=== PATIENT | female | born 1935 | race Caucasian/White ===

== ENCOUNTER 2024-02-17 13:50 | Inpatient (IN) | payer MEDICARE, SELFPAY ==
[2024-02-17] VITALS (22 sets, daily range): BP systolic 82–252; BP diastolic 45–97; BMI 32.1; BMI 31.5
[2024-02-17] MEDS: TORADOL 15 MG IV (09:13)
[2024-02-17 09:47] LABS: % Basophils 0.6 % (0-2); % Eosinophils 4.2 % (0-6); % Immature Granulocytes 0.4 % (0-0.5); % Monocytes 7.5 % (1.7-9.3); % Neutrophils 66.3 % (42.2-75.2); Absolute Basophils 0.1 10^3/uL (0-0.2); Absolute Eosinophils 0.4 10^3/uL (0-0.7); Absolute Lymphocytes 1.8 10^3/uL (1.2-3.4); Absolute Monocytes 0.6 10^3/uL (0.1-0.6); Absolute Neutrophils 5.6 10^3/uL (1.4-6.5); Hematocrit 38.8 % (37.0-47.0); Hemoglobin 12.5 g/dL (12.0-16.0); Mean Corp Hgb Conc. 32.2 g/dL (33.0-37.0); Mean Corpuscular Hgb 27.4 pg (27.0-31.0); Mean Corpuscular Volume 84.9 fL (81.0-99.0); Nucleated Red Blood Cells % 0 %; Platelet Count 184 10^3/uL (130-400); Red Blood Cell Count 4.57 10^6/uL (4.20-5.40); Red Cell Dist. Width 14.8 % (11.5-14.5); White Blood Cell Count 8.4 10^3/uL (4.8-10.8)
--- NOTE | 2024-02-17 09:48 | ED.GENMED ---
History of Present Illness
General
Chief Complaint: Extremity Pain (non-traumatic)
Source: patient
Exam Limitations: none
Time Seen by Provider: 02/17/24 08:42
Nursing documentation reviewed up to this point in time: agreed with
Travel History
Have you had any contact with someone who has COVID-19?: No
Do you have any symptoms of coronavirus? Fever > 100 degrees, chills, cough, shortness of breath, sore throat, loss of taste or smell, muscle aches, or headache?: No
History of Present Illness
History of Present Illness:
88-year-old female with a history of hypertension, hyperlipidemia, lvp-fnmxdjo-cpihbqnsh diabetes, back pain with chronic neuropathy and status post right hip replacement in 2017 with ongoing chronic right hip pain radiating into her leg on pain
management presents for an acute exacerbation of her chronic pain in her right hip and leg. Patient says that she normally lives at a 5 out of 10 plane level, she takes hydrocodone/Tylenol 10�3 25 3 times a day for pain. She used to get injections
in her back but they stopped working. This morning when she got up and went to get up to go to the bathroom she felt more significant pain in her right hip than usual which is into her right thigh. She does not feel numbness or weakness or have
incontinence. She has not had a fevers or or chills. There is been no trauma. This is in the same distribution as her chronic pain. She has not been x-rayed or image in a while. Patient says that she was able to take her hydrocodone but
ultimately called at [facility] for help and they called 911. She does not normally need to come to the hospital for pain medication.
Past History
Past History
ED Past Medical History: HTN, Hypercholesterolemia, NIDDM, Psychiatric and Other (Neuropathy)
ED Past Surgical History: Orthopedic
Review of Systems
Review of Systems
Allergies reviewed?: Yes
All Other Systems: Not applicable
Phy Exam
Physical Exam
Physical Exam:
GENERAL: Alert , in no apparent distress, comfortable at rest
HEAD: NCAT
NECK: no midline tenderness, active ROM intact, no paraspinal muscle tenderness;
CARDIAC: Regular rate and rhythm, no edema
LUNGS: Clear breath sounds bilaterally, no acute respiratory distress, no wheezes/rales/rhonchi
ABDOMEN: Soft, without focal tenderness, no r/g, no cvat, normal bowel sounds, nondistended
NEUROLOGICAL: Alert and oriented, no focal neuro deficits, CN intact, 5/5 strength, sensation intact unable to ambulate due to pain
SKIN: Warm and dry,
MUSCULOSKELETAL: No edema, well perfused. She does have an old incision which is healed, she has some prominence of her right lateral femur related to her previous surgery but no significant tenderness
Patient has no tenderness to palpation of the hip, minimal tenderness in the SI joint
He has no pain with flexion of the left hip, external rotation, but with internal rotation has discomfort
Back: No midline tenderness, mild dextroscoliosis, no paraspinal muscle tenderness, no swelling
When the patient went to sit on the side of the stretcher she got severe pain in her right SI joint and was unable to stand
negative straight leg raise Bilaterally
PSYCH:anixous
Course
Orders/Labs/Results
Orders:
Orders
02/17/24 09:01
Ketorolac [Toradol] 15 mg IV NOW STA
Hip, Right 2-3 Views [CR Hip - RT w/wo Pel 2-3 Vw*] Urgent
Comment:
Reason For Exam: right hip pain
Include a pelvis x-ray?: Yes
Lumbar Spine Complete, 4 View [CR Lumbar Spine Comp Min 4 Vw*] Urgent
Comment:
Reason For Exam: lower back pain into right leg
02/17/24 09:13
Basic Metabolic Panel Urgent
Complete Blood Count/With Diff Urgent
02/17/24 09:47
Gabapentin [Neurontin] 300 mg PO NOW STA
02/17/24 09:57
Losartan/Hydrochlorothiazide [Hyzaar 100-12.5 Tablet] 1 tab PO NOW STA
02/17/24 10:25
HYDROmorphone [Dilaudid] 1 mg .ROUTE .STK-MED ONE
HYDROmorphone [Dilaudid] 1 mg IV NOW STA
02/17/24 10:34
Losartan [Cozaar] 100 mg PO NOW STA
02/17/24 10:59
Labetalol HCl [Trandate] 10 mg IV NOW STA
02/17/24 11:08
Electrocardiogram (*1) Urgent
Reason for Study: Hypertension, Benign
EKG- Treatment ONCE
02/17/24 13:01
Admit/Transfer Patient As Directed
Co-Sign Provider:
Level of Care: Inpatient admission
Assign to:: Telemetry
Physician / Group: zaragoza/hospitalist
Diagnosis: HTN urgency
Reason for Telemetry: Other
Other Reason for Telemetry: meds for bp
Date to Stop Telemetry: 02/19/24
Time to Stop Telemetry: 11:00
Reason for Hospitalization: severe back/hip pain, htn urgency
Expected length of stay greater than two midnights?: Yes
ELOS- Estimated Length of Stay in days: 4
I certify the patient meets the requirements for IP care: Yes
02/17/24 13:03
Code Status As Directed
Resuscitation Status: Full Code
02/17/24 13:11
Potassium Stat
02/19/24 11:00
DC Protocol for Telemetry ONCE
Abnormal Lab Results
02/17/24
09:13
MCHC 32.2 L g/dL
(33.0-37.0)
RDW 14.8 H %
(11.5-14.5)
MPV 11.0 H fL
(7.4-10.4)
BUN 39 H mg/dl
(7-17)
Creatinine 1.7 H mg/dL
(0.6-1.0)
Glucose 123 H mg/dl
(70-99)
02/17/24 09:13
02/17/24 13:11
Vital Signs
Initial and Last Documented VS:
Initial Vital Signs
Temp Pulse Resp BP Pulse Ox
97.8 F 74 18 197/74 94
02/17/24 08:00 02/17/24 08:00 02/17/24 08:00 02/17/24 08:00 02/17/24 08:00
Last Documented Vital Signs
Temp Pulse Resp BP Pulse Ox
97.8 F 60 18 144/93 91
02/17/24 08:00 02/17/24 14:15 02/17/24 08:00 02/17/24 14:00 02/17/24 14:15
MDM/Problems Addressed
Differential Diagnosis Includes:
Acute exacerbation of chronic pain, radiculopathy,
MDM/Problems Addressed:
88 y/o F with htn, hld, niddm, diabetes, chronic neuropathy and chronic pain on pain management after right THR years ago; woke up and tried to get out of bed and her chronic pain was worse than usual, same distribution right hip into right leg; no
nubmness/weakness/incontience, no chest pain/sob/abd pain;
here pt is able to range the hip,do not suspect infectious cause for severe hip pain, normal neurovasc exam; she was very hypertensive on arrival but hadn't taken meds and was in pain; took her hydrocodone prior to me seeing her, but is still in
pain after 2 doses IV pain meds; xrays unremarkable; wbc normal; cr 1.7; bp elevated still; got her dose of losartan here but persistently hypertnesive, given a dose of labetalol and will admit for pain control;
*Critical Care Note
Total Time (30-74mins, 75-104mins- exclusive of procedures): Not Applicable
ED Attending Note
-
Portions of this chart may have been created with voice recognition software.� Occasional wrong word or��sound alike� substitutions may have occurred due to the inherent limitations of voice recognition software.
Discharge Plan
Departure
Patient Disposition: Admit
Date of Disposition: 02/17/24
Time of Disposition: 11:01
Admit to: Med/Surg
Presentation/result/management discussed w/ accepting MD/DO: Hospitalist
Condition: Fair
Covid-19: Not Applicable
Discharge Problem:
Intractable pain, Hypertensive urgency
Interventions
Interventions:
*Risk Screen - Suicide Last Done: 02/17/24 09:12
*General Assessment Last Done: 02/17/24 09:12
*Neglect/Abuse Screening Last Done: 02/17/24 09:12
*ED COVID-19 Vaccine History Last Done: 02/17/24 07:55
ED-Skin Assessment Last Done: 02/17/24 08:57
ED-Musculoskeletal Assessment Last Done: 02/17/24 08:57
[2024-02-17 10:07] LABS: Blood Urea Nitrogen 39 mg/dl (7-17); Calcium 9.5 mg/dl (8.4-10.2); Carbon Dioxide 26 mmol/L (22-30); Chloride 105 mmol/L (98-107); Estimated Creatinine Clearance 21 ml/min; Glucose 123 mg/dl (70-99); Sodium 138 mmol/L (135-145); eGFR 28.84
[2024-02-17] MEDS: DILAUDID 1 MG IV (10:28)
[2024-02-17] MEDS: NEURONTIN 300 MG PO ×2 (10:29→20:26)
[2024-02-17] MEDS: COZAAR 100 MG PO (10:45)
[2024-02-17] MEDS: TRANDATE 10 MG IV (11:19)
--- NOTE | 2024-02-17 13:06 | HPS.HSE ---
Family Physician
-
Family Physician: Tunde Forte
Chief Complaint
-
back and hip pain
History of Present Illness
88 female past medical history of chronic pain was presented from [facility] with severe right hip pain and leg pain. Patient states on daily basis she takes pain medication. Follows up with a pain management doctor and has been discussing care
over the phone. Taking hydrocodone 3 times daily. Per daughter at bedside patient pain has worsened in the last 2 to 3 weeks. States usually walks with a walker. Also has scooter at [facility]. States at baseline she usually has pain.
However the pain exacerbated this morning and decided come to the hospital. Denies any urinary or fecal incontinence. States of right hip pain radiating to the right knee. Patient states she used to get injections in the back however stopped
working and thus it was discontinued. States she woke up with severe pain in the right hip radiating to her thigh which was significantly more compared to prior events. Currently states of severe pain which was alleviated by Dilaudid earlier
today. Denies any other chest pain shortness of breath nausea vomiting. No abdominal pain.
Medical History
Past Medical History
Past Medical History: Reports Other
Additional Past Medical History:
Primary hypertension
Osteoarthritis
Chronic opioid dependent daily basis
Neuropathy
Coronary artery disease
Mood disorder
GERD
Suspected CKD
Diabetes mellitus
Past Surgical History: Reports Other
Additional Past Surgical History:
Coronary artery disease status post CABG
Bilateral hip replacement
Lumbar spinal fusion and decompression
Social History
Unable to obtain full social history at this time due to: Acuity
Living: Correction (Lives at [facility])
Family History
Family History: Not pertinent
Allergies / Home Medications
Allergies reflects when Allergies were last updated in [employer].
Home Medications with original date entered in [employer]
Allergy/Medication List:
Allergies
Allergy/AdvReac Type Severity Reaction Status Date / Time
No Known Allergies Allergy Unverified 02/17/24 07:57
Home Medications
aspirin 81 mg tablet,delayed release 81 mg PO DAILY 02/17/24
calcium carbonate 500 mg PO DAILY 02/17/24
celecoxib 200 mg capsule (Celebrex) 200 mg PO BID 02/17/24
ezetimibe 10 mg-simvastatin 20 mg tablet (Vytorin) 1 tab PO DAILY 02/17/24
gabapentin 300 mg capsule 300 mg PO TID 02/17/24
hydrocodone 10 mg-acetaminophen 325 mg tablet 1 tab PO TID 02/17/24
losartan 100 mg tablet 100 mg PO DAILY 02/17/24
metformin 500 mg tablet,extended release 24 hr 500 mg PO BID 02/17/24
omega 7-pwi-lpu-fish oil 1,000 mg (120 mg-180 mg) capsule (Fish Oil) 1 cap PO DAILY 02/17/24
omeprazole 40 mg capsule,delayed release 40 mg PO DAILY 02/17/24
sertraline 50 mg tablet 50 mg PO DAILY 02/17/24
therapeutic multivitamin 1 tab PO DAILY 02/17/24
Review of Systems
-
Unable to obtain full review of systems at this time due to: Acuity
Physical Exam
Vital Signs
Vital Signs
Temp Pulse Resp BP Pulse Ox
97.8 F 63 18 93/73 89
02/17/24 08:00 02/17/24 11:48 02/17/24 08:00 02/17/24 11:48 02/17/24 11:48
Physical Exam
General: Well Developed, Well Nourished, Appears in Distress and Pain
HEENT: NormoCephalic, Moist mucous membranes and Atraumatic
Respiratory: Clear
Cardiac: S1/S2 and Regular Rhythm; No Murmur or Rub
GI: Soft, Non Tender, Non Distended and Normal Bowel Sounds; No Organomegaly
Rectal: Deferred by Provider
Musculoskeletal: No Clubbing, No Cyanosis and No Edema
Skin: No Rash
Neuro: Awake, Nonfocal/grossly intact and Other (Hard of hearing. Tender to palpation lower back region.)
Psych: Calm
Laboratory Results
-
02/17/24 09:13
02/17/24 09:13
Laboratory Results
Total Bilirubin Cancelled 02/17/24 09:13
AST Cancelled 02/17/24 09:13
ALT Cancelled 02/17/24 09:13
Alkaline Phosphatase Cancelled 02/17/24 09:13
Impression/Plan
-
#Acute on chronic lumbar radiculopathy
#Bilateral hip replacements
#Chronic opioid dependent daily basis
Increase hydrocodone to 4 times daily
Increase gabapentin to 400 3 times daily
Intravenous medication for additional pain control if needed
Bowel regimen
Physical and Occupational Therapy in the morning
Hip and spine x-ray noted
#Hypertension urgency likely secondary to pain
#Primary hypertension
Patient blood pressure improved. During my evaluation patient blood pressure 132/51
Continue with home medication
#GERD
Continue PPI
Hyperlipidemia
Continue home meds
Mood disorder
Continue with sertraline
Elevated creatinine likely MUNA versus CKD
Trend creatinine
Diabetes mellitus type 2
Continue metformin
Sliding scale Accu-Chek
Obtain A1c
DVT prophylaxis heparin
Discussed with daughter at bedside in detail
Full code
I spent a total of 78 minutes with the patient or on the floor. More than 50% of this time involved counseling and coordination of care.
[2024-02-17 13:34] LABS: Potassium 4.4 mmol/L (3.5-5.1)
[2024-02-17] MEDS: DILAUDID 0.5 MG IV (15:44)
[2024-02-17 16:39] LABS: Glucose - Point of Care 111 mg/dl (70-99)
[2024-02-17] MEDS: NOVOLOG FLEXPEN-LOW RESISTANCE SC (17:15)
[2024-02-17] MEDS: APRESOLINE 10 MG IV (17:29)
[2024-02-17] MEDS: NORCO 7.5/325 1 TABLET PO ×2 (17:30→21:24)
[2024-02-17] MEDS: HEPARIN 5000 UNITS SC (20:26)
[2024-02-17 21:47] LABS: Glucose - Point of Care 188 mg/dl (70-99)
[2024-02-18] VITALS (8 sets, daily range): BP systolic 125–250; BP diastolic 51–95; PULSE 68; O2SAT 94; BMI 29.4
[2024-02-18] MEDS: DILAUDID 0.5 MG IV (02:49)
[2024-02-18] MEDS: VALIUM 2 MG PO (03:29)
[2024-02-18] MEDS: NORCO 7.5/325 1 TABLET PO ×4 (08:07→21:20)
[2024-02-18] MEDS: PROTONIX 40 MG PO (08:07)
[2024-02-18] MEDS: LIPITOR 10 MG PO (08:07)
[2024-02-18] MEDS: COZAAR 100 MG PO (08:07)
[2024-02-18] MEDS: ZETIA 10 MG PO (08:07)
[2024-02-18] MEDS: ASPIR LOW (ENTERIC COATED) 81 MG PO (08:07)
[2024-02-18] MEDS: NEURONTIN 300 MG PO ×2 (08:07→20:14)
[2024-02-18] MEDS: HEPARIN 5000 UNITS SC ×2 (08:08→20:14)
[2024-02-18] MEDS: ZOLOFT 50 MG PO (08:08)
[2024-02-18] MEDS: THERAGRAN 1 TABLET PO (08:08)
[2024-02-18] MEDS: OSCAL CAL 500 500 MG PO (08:08)
[2024-02-18 08:18] LABS: Blood Urea Nitrogen 34 mg/dl (7-17); Calcium 9.5 mg/dl (8.4-10.2); Carbon Dioxide 26 mmol/L (22-30); Chloride 106 mmol/L (98-107); Estimated Creatinine Clearance 24 ml/min; Glucose 125 mg/dl (70-99); Potassium 4.9 mmol/L (3.5-5.1); Sodium 139 mmol/L (135-145); eGFR 33.52
[2024-02-18 08:35] LABS: Glucose - Point of Care 115 mg/dl (70-99)
[2024-02-18] MEDS: NOVOLOG FLEXPEN-LOW RESISTANCE SC ×2 (08:38→12:33)
[2024-02-18] MEDS: APRESOLINE 10 MG IV (09:51)
[2024-02-18] MEDS: FLUSH (NSS) 2 FLUSH IV (09:51)
--- NOTE | 2024-02-18 11:15 | W.PN.HOSP.TC ---
Today's Communication/Plan
-
pain control
procardia as bp elevated
ice pack
pt/ot
Assessment / Plan
Assessment / Plan
#Acute on chronic lumbar radiculopathy
#Bilateral hip replacements
#Chronic opioid dependent daily basis
Increase hydrocodone to 4 times daily
Gabapentin dose adjusted/decrease due to low CrCl
Intravenous medication for additional pain control if needed
Bowel regimen
Physical and Occupational Therapy in the morning
Hip and spine x-ray noted
ice pack
lateral hip pain-?trochanteric bursitis
#Hypertension urgency likely secondary to pain
#Primary hypertension
Patient blood pressure improved.
Continue with home medication losartan.
Add procardia as BP remains elevated.
#GERD
Continue PPI
Hyperlipidemia
Continue home meds
Mood disorder
Continue with sertraline
Elevated creatinine likely MUNA versus CKD
Trend creatinine
hold NSAIDs for now
Diabetes mellitus type 2
Hold metformin
Sliding scale Accu-Chek
Obtain A1c at 6
DVT prophylaxis heparin
Full code
PT/OT-SNF on dc.
Anticipated Discharge: 24 - 48 hours
Subjective/Interval History
-
Date of Service: February 18, 2024
states of lateral hip pain with radiation to knee
no back pain
Objective Data
-
Labs:
Laboratory Results
02/18/24
07:20
Sodium 139
Potassium 4.9
Chloride 106
Carbon Dioxide 26
BUN 34 H
Creatinine 1.5 H
Glucose 125 H
Calcium 9.5
Vital Signs:
Vital Signs
Temp Pulse Resp BP Pulse Ox
97.9 F 70 22 179/64 96
02/18/24 07:00 02/18/24 09:51 02/18/24 07:00 02/18/24 09:51 02/18/24 07:00
I&O
02/17/24 02/18/24 02/19/24
06:59 06:59 06:59
Output Total 150 / 150
Balance -150 / -150
Physical Exam
-
General: Well Developed and No Apparent Distress
HEENT: Normocephalic, Atraumatic and Moist Mucous Membranes
Respiratory: Clear to Auscultation
Cardiac: Regular Rhythm and S1/S2; Negative Murmur, Rub or Gallop
GI: Soft, Nontender, Nondistended and Normal Bowel Sounds; Negative Organomegaly
Rectal: Deferred by Provider
Musculoskeletal: No Clubbing, No Cyanosis and No Edema
Skin: Negative Rash
Neuro: Awake and Nonfocal/Grossly Intact
Psych: Calm
Data Reviewed
-
Total Time Spent with Patient (in minutes): 56
[2024-02-18 12:07] LABS: Glucose - Point of Care 148 mg/dl (70-99)
[2024-02-18] MEDS: PROCARDIA XL (EXTENDED RELEASE) 30 MG PO (12:18)
[2024-02-18] MEDS: MORPHINE SULFATE 2 MG IV ×2 (12:29→17:10)
[2024-02-18 16:25] LABS: Glucose - Point of Care 166 mg/dl (70-99)
[2024-02-18] MEDS: NOVOLOG FLEXPEN-LOW RESISTANCE 1 UNITS SC (17:09)
[2024-02-18 21:22] LABS: Glucose - Point of Care 153 mg/dl (70-99)
[2024-02-19] MEDS: VALIUM 2 MG PO (02:53)
[2024-02-19] MEDS: APRESOLINE 10 MG IV ×2 (03:35→23:19)
[2024-02-19] MEDS: MORPHINE SULFATE 2 MG IV (04:30)
--- NOTE | 2024-02-19 05:35 | PTCARENOTE ---
pt manual BP 180/70, PRN hydralazine given. BP rechecked an hour later- 183/80. GABBIE De Jesus notified, GABBIE said OK to give procardia XL early. call petty within reach.
[2024-02-19] MEDS: PROCARDIA XL (EXTENDED RELEASE) 30 MG PO (05:58)
[2024-02-19 07:54] LABS: Glucose - Point of Care 133 mg/dl (70-99)
[2024-02-19 07:58] VITALS: BP 147/56
[2024-02-19] MEDS: NOVOLOG FLEXPEN-LOW RESISTANCE SC ×2 (09:24→18:41)
[2024-02-19] MEDS: COZAAR 100 MG PO (09:25)
[2024-02-19] MEDS: ASPIR LOW (ENTERIC COATED) 81 MG PO (09:25)
[2024-02-19] MEDS: NORCO 7.5/325 1 TABLET PO ×4 (09:26→21:39)
[2024-02-19] MEDS: NEURONTIN 300 MG PO ×2 (09:26→20:54)
[2024-02-19] MEDS: OSCAL CAL 500 500 MG PO (09:27)
[2024-02-19] MEDS: ZETIA 10 MG PO (09:27)
[2024-02-19] MEDS: ZOLOFT 50 MG PO (09:27)
[2024-02-19] MEDS: THERAGRAN 1 TABLET PO (09:28)
[2024-02-19] MEDS: LIPITOR 10 MG PO (09:28)
[2024-02-19] MEDS: PROTONIX 40 MG PO (09:31)
[2024-02-19] MEDS: DILAUDID 0.5 MG IV ×2 (09:31→15:47)
[2024-02-19] MEDS: HEPARIN 5000 UNITS SC ×2 (09:32→20:54)
--- NOTE | 2024-02-19 10:42 | CM ---
Reviewed chart, met with patient to obtain information for assessment. Patient's daughter was at bedside and patient was working with PT so patient's daughter was able to provide information for assessment. Patient lives alone at [facility]. She
is normally independent with her ADLs, personal care, dressing and bathing. She uses a walker to assist her with her ambulation but uses a scooter for long distances.
Patient receives assistance with retail product demo specialist, cleaning, meal prep and laundry. Her daughter lives close and is supportive.
Patient's daughter reported that patient is not at baseline level of functioning and would prefer for her to go to the [facility] prior to returning to her apartment.
Patient has never had VN services (daughter relayed she did but years ago). She has not been to a SNF.
She has a prescription plan and uses [facility] pharmacy for all of her medications.
Her provider is Dr. Tunde Forte.
Placed a call to Mar in admissions at the [facility] however she did not waste picker. Left a detailed message updating that referral will be sent for her review and encouraged return call to discuss discharge.
Plan: Case management will continue to follow and assist with discharge planning. Patient/daughter hopeful for SNF at [facility] as she is a resident.
[2024-02-19 10:45] VITALS: BP 136/58; PULSE 86
[2024-02-19 11:27] VITALS: BP 116/60
--- NOTE | 2024-02-19 11:53 | W.PN.HOSP.TC ---
Today's Communication/Plan
-
MR pending
pain control
OOB
bowel regimen
monitor BP
Assessment / Plan
Assessment / Plan
#Acute on chronic lumbar radiculopathy
#Bilateral hip replacements
#Chronic opioid dependent daily basis
Increase hydrocodone to 4 times daily
Gabapentin dose adjusted/decrease due to low CrCl
Intravenous medication for additional pain control if needed
Bowel regimen standing
Physical and Occupational Therapy recs SNF
Hip and spine x-ray noted
MR lumbar spine ordered
No urinary or fecal incontience. No saddle anesthesia
ice pack
lateral hip pain-?trochanteric bursitis
Called and left message for patient pain management doctor Dr. Donte Nowak at [phone]. Waiting to hear back.
#Hypertension urgency likely secondary to pain
#Primary hypertension
Patient blood pressure improved.
Continue with home medication losartan.
Add procardia as BP remains elevated.
BP improved 116/60
#GERD
Continue PPI
Hyperlipidemia
Continue home meds
Mood disorder
Continue with sertraline
Elevated creatinine likely MUNA versus CKD
Trend creatinine
hold NSAIDs for now
Diabetes mellitus type 2
Hold metformin
Sliding scale Accu-Chek
Obtain A1c at 6
DVT prophylaxis heparin
Full code
PT/OT-SNF on dc.
d/w with daughter at bedside
Anticipated Discharge: > 48 hours
Subjective/Interval History
-
Date of Service: February 19, 2024
States was feeling alot better yesterday
overnight with severe pain after movements
remains with pain this morning
Objective Data
-
Vital Signs:
Vital Signs
Temp Pulse Resp BP Pulse Ox
98.5 F 80 18 116/60 93
02/19/24 11:27 02/19/24 11:27 02/19/24 11:27 02/19/24 11:27 02/19/24 11:27
I&O
02/18/24 02/19/24 02/20/24
06:59 06:59 06:59
Intake Total 1500 / 1500
Output Total 150 / 150
Balance -150 / -150 1500 / 1500
Physical Exam
-
General: Well Developed and No Apparent Distress
HEENT: Normocephalic, Atraumatic and Moist Mucous Membranes
Respiratory: Clear to Auscultation
Cardiac: Regular Rhythm and S1/S2; Negative Murmur, Rub or Gallop
GI: Soft, Nontender, Nondistended and Normal Bowel Sounds; Negative Organomegaly
Rectal: Deferred by Provider
Musculoskeletal: No Clubbing, No Cyanosis, No Edema and Other (TTP at R hip area. )
Skin: Negative Rash
Neuro: Awake, No Motor Deficits, Nonfocal/Grossly Intact and Other (hard of hearing )
Psych: Calm
Data Reviewed
-
Total Time Spent with Patient (in minutes): 55
[2024-02-19] MEDS: SENOKOT-S 1 TABLET PO ×2 (12:48→20:54)
[2024-02-19 12:57] LABS: Glucose - Point of Care 238 mg/dl (70-99)
[2024-02-19] MEDS: NOVOLOG FLEXPEN-LOW RESISTANCE 2 UNITS SC (13:18)
[2024-02-19 14:55] VITALS: BP 110/44
[2024-02-19 17:14] LABS: Glucose - Point of Care 123 mg/dl (70-99)
[2024-02-19 18:59] VITALS: BP 124/59
[2024-02-19] MEDS: MIRALAX 17 GRAMS PO (21:39)
[2024-02-19 21:43] LABS: Glucose - Point of Care 158 mg/dl (70-99)
[2024-02-19 23:00] VITALS: BP 167/63
[2024-02-20 03:00] VITALS: BP 125/55
[2024-02-20 07:25] VITALS: BP 152/71
[2024-02-20 07:50] LABS: Glucose - Point of Care 124 mg/dl (70-99)
--- NOTE | 2024-02-20 08:03 | W.PN.HOSP.TC ---
Today's Communication/Plan
-
Await MRI results
Continue pain meds
Bowel regimen
Eventual SNF
Assessment / Plan
Assessment / Plan
#Acute on chronic lumbar radiculopathy
#Bilateral hip replacements
#Chronic opioid dependent daily basis
Increase hydrocodone to 4 times daily
Gabapentin dose adjusted/decrease due to low CrCl
Intravenous medication for additional pain control if needed
Bowel regimen standing
Physical and Occupational Therapy recs SNF
Hip and spine x-ray noted
MR lumbar spine ordered
No urinary or fecal incontience. No saddle anesthesia
ice pack
lateral hip pain-?trochanteric bursitis
Discussed with Dr. Donte Nowak at [phone]. Awaiting MRI results
Eventual SNF
#Hypertension urgency likely secondary to pain
#Primary hypertension
Patient blood pressure improved.
Continue with home medication losartan.
Add procardia as BP remains elevated.
Continue to monitor may need to adjust Procardia.
#GERD
Continue PPI
Hyperlipidemia
Continue home meds
Mood disorder
Continue with sertraline
Elevated creatinine likely MUNA versus CKD
Trend creatinine
hold NSAIDs for now
Diabetes mellitus type 2
Hold metformin
Sliding scale Accu-Chek
Obtain A1c at 6
DVT prophylaxis heparin
Full code
PT/OT-SNF on dc.
d/w with daughter at bedside on 02/18.
Anticipated Discharge: > 48 hours
Subjective/Interval History
-
Date of Service: February 20, 2024
States pain has improved
States was able to sleep overnight
Objective Data
-
Vital Signs:
Vital Signs
Temp Pulse Resp BP Pulse Ox
98.3 F 90 16 152/71 96
02/20/24 07:25 02/20/24 07:25 02/20/24 07:25 02/20/24 07:25 02/20/24 07:25
I&O
02/19/24 02/20/24 02/21/24
06:59 06:59 06:59
Intake Total 1500 / 1500 1500 / 1500
Balance 1500 / 1500 1500 / 1500
Physical Exam
-
General: Well Developed and No Apparent Distress
HEENT: Normocephalic, Atraumatic and Moist Mucous Membranes
Respiratory: Clear to Auscultation
Cardiac: Regular Rhythm and S1/S2; Negative Murmur, Rub or Gallop
GI: Soft, Nontender, Nondistended and Normal Bowel Sounds; Negative Organomegaly
Rectal: Deferred by Provider
Musculoskeletal: No Clubbing, No Cyanosis, No Edema and Other (TTP at R hip area. )
Skin: Negative Rash
Neuro: Awake, No Motor Deficits, Nonfocal/Grossly Intact and Other (hard of hearing )
Psych: Calm
[2024-02-20] MEDS: NOVOLOG FLEXPEN-LOW RESISTANCE SC (08:37)
[2024-02-20] MEDS: ASPIR LOW (ENTERIC COATED) 81 MG PO (09:04)
[2024-02-20] MEDS: PROCARDIA XL (EXTENDED RELEASE) 30 MG PO (09:04)
[2024-02-20] MEDS: NEURONTIN 300 MG PO ×2 (09:04→19:48)
[2024-02-20] MEDS: ZOLOFT 50 MG PO (09:04)
[2024-02-20] MEDS: OSCAL CAL 500 500 MG PO (09:04)
[2024-02-20] MEDS: THERAGRAN 1 TABLET PO (09:04)
[2024-02-20] MEDS: PROTONIX 40 MG PO (09:04)
[2024-02-20] MEDS: COZAAR 100 MG PO (09:04)
[2024-02-20] MEDS: LIPITOR 10 MG PO (09:05)
[2024-02-20] MEDS: ZETIA 10 MG PO (09:05)
[2024-02-20] MEDS: SENOKOT-S 1 TABLET PO ×2 (09:05→19:48)
[2024-02-20] MEDS: HEPARIN 5000 UNITS SC ×2 (09:05→19:48)
[2024-02-20] MEDS: NORCO 7.5/325 1 TABLET PO ×4 (09:05→21:42)
[2024-02-20 11:16] VITALS: BP 144/55
[2024-02-20 12:11] LABS: Glucose - Point of Care 163 mg/dl (70-99)
[2024-02-20] MEDS: NOVOLOG FLEXPEN-LOW RESISTANCE 1 UNITS SC ×2 (13:25→17:36)
[2024-02-20 15:26] VITALS: BP 120/54
[2024-02-20 16:41] LABS: Glucose - Point of Care 165 mg/dl (70-99)
[2024-02-20] MEDS: DILAUDID 0.5 MG IV (19:57)
[2024-02-20 21:04] LABS: Glucose - Point of Care 151 mg/dl (70-99)
[2024-02-20] MEDS: MIRALAX 17 GRAMS PO (21:42)
[2024-02-20 23:25] VITALS: BP 142/79
[2024-02-21 07:17] VITALS: BP 170/82
[2024-02-21] MEDS: THERAGRAN 1 TABLET PO (07:41)
[2024-02-21] MEDS: NEURONTIN 300 MG PO ×2 (07:41→20:32)
[2024-02-21] MEDS: ASPIR LOW (ENTERIC COATED) 81 MG PO (07:41)
[2024-02-21] MEDS: PROTONIX 40 MG PO (07:41)
[2024-02-21] MEDS: OSCAL CAL 500 500 MG PO (07:42)
[2024-02-21] MEDS: SENOKOT-S 1 TABLET PO ×2 (07:42→20:32)
[2024-02-21] MEDS: COZAAR 100 MG PO (07:42)
[2024-02-21] MEDS: NORCO 7.5/325 1 TABLET PO ×4 (07:42→21:40)
[2024-02-21] MEDS: PROCARDIA XL (EXTENDED RELEASE) 30 MG PO ×2 (07:42→20:32)
[2024-02-21] MEDS: ZOLOFT 50 MG PO (07:43)
[2024-02-21] MEDS: HEPARIN 5000 UNITS SC ×2 (07:43→20:32)
[2024-02-21] MEDS: LIPITOR 10 MG PO (07:43)
[2024-02-21] MEDS: ZETIA 10 MG PO (07:43)
[2024-02-21 08:07] LABS: Glucose - Point of Care 114 mg/dl (70-99)
[2024-02-21 08:38] VITALS: BP 164/62
[2024-02-21] MEDS: NOVOLOG FLEXPEN-LOW RESISTANCE SC ×2 (10:04→18:13)
--- NOTE | 2024-02-21 10:25 | W.PN.HOSP.TC ---
Today's Communication/Plan
-
CT RLE
pain control
oob/pt
start dispo
Assessment / Plan
Assessment / Plan
#Acute on chronic lumbar radiculopathy
#Bilateral hip replacements
#Chronic opioid dependent daily basis
Increase hydrocodone to 4 times daily
Gabapentin dose adjusted/decrease due to low CrCl
Intravenous medication for additional pain control if needed
Bowel regimen standing
Physical and Occupational Therapy recs SNF
Hip and spine x-ray noted
MR lumbar spine ordered
No urinary or fecal incontinence. No saddle anesthesia
ice pack
lateral hip pain-?trochanteric bursitis
Check RLE CT scan r/o occult fracture.
Discussed with Dr. Donte Nowak at [phone].
Eventual SNF
#Hypertension urgency likely secondary to pain
#Primary hypertension
Continue with home medication losartan.
Add procardia
#GERD
Continue PPI
Hyperlipidemia
Continue home meds
Mood disorder
Continue with sertraline
Elevated creatinine likely MUNA versus CKD
Trend creatinine
hold NSAIDs for now
Diabetes mellitus type 2
Hold metformin
Sliding scale Accu-Chek
Obtain A1c at 6
DVT prophylaxis heparin
Full code
PT/OT-SNF on dc.
d/w with daughter at bedside on 02/18.
Anticipated Discharge: Within 24 hours
Subjective/Interval History
-
Date of Service: February 21, 2024
Denies back pain
states of severe R lateral leg pain-worsened with walking
Objective Data
-
Vital Signs:
Vital Signs
Temp Pulse Resp BP Pulse Ox
97.8 F 95 16 164/62 96
02/21/24 07:46 02/21/24 07:46 02/21/24 07:46 02/21/24 08:38 02/21/24 07:46
I&O
02/20/24 02/21/24 02/22/24
06:59 06:59 06:59
Intake Total 1500 / 1500 1720 / 1720
Balance 1500 / 1500 1720 / 1720
Physical Exam
-
General: Well Developed and No Apparent Distress
HEENT: Normocephalic, Atraumatic and Moist Mucous Membranes
Respiratory: Clear to Auscultation
Cardiac: Regular Rhythm and S1/S2; Negative Murmur, Rub or Gallop
GI: Soft, Nontender, Nondistended and Normal Bowel Sounds; Negative Organomegaly
Rectal: Deferred by Provider
Musculoskeletal: No Clubbing, No Cyanosis, No Edema and Other (TTP at R hip area. )
Skin: Negative Rash
Neuro: Awake, No Motor Deficits, Nonfocal/Grossly Intact and Other (hard of hearing )
Psych: Calm
[2024-02-21 11:31] VITALS: BP 178/57
[2024-02-21] MEDS: APRESOLINE 10 MG IV (11:35)
[2024-02-21 11:51] LABS: Glucose - Point of Care 153 mg/dl (70-99)
--- NOTE | 2024-02-21 12:41 | PTCARENOTE ---
pt had vagal response while on toilet after last BM. pt had also received PRN hydralazine for SPB >160. assisted back to bed, C/O weakness and fatigue. attending notified. pt then presents with b/L hand tremors, though states this does usually
happen to her 'before pain comes on'
[2024-02-21] MEDS: NOVOLOG FLEXPEN-LOW RESISTANCE 1 UNITS SC (12:50)
[2024-02-21] MEDS: NSS 500 IV (12:50)
[2024-02-21 16:02] VITALS: BP 145/56
[2024-02-21 16:37] LABS: Glucose - Point of Care 199 mg/dl (70-99)
[2024-02-21 18:12] LABS: Glucose - Point of Care 133 mg/dl (70-99)
[2024-02-21 21:05] LABS: Glucose - Point of Care 160 mg/dl (70-99)
[2024-02-21] MEDS: MIRALAX 17 GRAMS PO (21:40)
[2024-02-21 23:15] VITALS: BP 138/60
[2024-02-22 07:00] VITALS: BP 160/68
[2024-02-22 07:36] LABS: % Basophils 0.8 % (0-2); % Eosinophils 5.3 % (0-6); % Immature Granulocytes 0.3 % (0-0.5); % Lymphocytes 31.8 % (20.5-51.1); % Monocytes 9.6 % (1.7-9.3); % Neutrophils 52.2 % (42.2-75.2); Absolute Basophils 0.1 10^3/uL (0-0.2); Absolute Eosinophils 0.4 10^3/uL (0-0.7); Absolute Lymphocytes 2.4 10^3/uL (1.2-3.4); Absolute Monocytes 0.7 10^3/uL (0.1-0.6); Hematocrit 37.8 % (37.0-47.0); Hemoglobin 11.8 g/dL (12.0-16.0); Mean Corp Hgb Conc. 31.2 g/dL (33.0-37.0); Mean Corpuscular Hgb 27.1 pg (27.0-31.0); Mean Corpuscular Volume 86.9 fL (81.0-99.0); Nucleated Red Blood Cells % 0 %; Platelet Count 189 10^3/uL (130-400); Red Blood Cell Count 4.35 10^6/uL (4.20-5.40); Red Cell Dist. Width 15.4 % (11.5-14.5); White Blood Cell Count 7.6 10^3/uL (4.8-10.8)
[2024-02-22 07:52] LABS: Glucose - Point of Care 118 mg/dl (70-99)
[2024-02-22 08:12] LABS: Blood Urea Nitrogen 42 mg/dl (7-17); Calcium 9.7 mg/dl (8.4-10.2); Carbon Dioxide 22 mmol/L (22-30); Chloride 104 mmol/L (98-107); Estimated Creatinine Clearance 17 ml/min; Glucose 131 mg/dl (70-99); Potassium 4.5 mmol/L (3.5-5.1); Sodium 137 mmol/L (135-145); eGFR 23.73
[2024-02-22] MEDS: NOVOLOG FLEXPEN-LOW RESISTANCE SC (08:12)
[2024-02-22] MEDS: SENOKOT-S 1 TABLET PO ×2 (08:12→19:30)
[2024-02-22] MEDS: PROTONIX 40 MG PO (08:13)
[2024-02-22] MEDS: OSCAL CAL 500 500 MG PO (08:13)
[2024-02-22] MEDS: ZETIA 10 MG PO (08:13)
[2024-02-22] MEDS: PROCARDIA XL (EXTENDED RELEASE) 30 MG PO ×2 (08:13→19:31)
[2024-02-22] MEDS: NEURONTIN 300 MG PO ×2 (08:13→19:30)
[2024-02-22] MEDS: ASPIR LOW (ENTERIC COATED) 81 MG PO (08:13)
[2024-02-22] MEDS: LIPITOR 10 MG PO (08:13)
[2024-02-22] MEDS: ZOLOFT 50 MG PO (08:14)
[2024-02-22] MEDS: COZAAR 100 MG PO (08:14)
[2024-02-22] MEDS: NORCO 7.5/325 1 TABLET PO ×4 (08:14→21:13)
[2024-02-22] MEDS: HEPARIN 5000 UNITS SC ×2 (08:14→19:31)
--- NOTE | 2024-02-22 08:21 | W.PN.HOSP.TC ---
Today's Communication/Plan
-
urine studies, PVR
pain control
eventual SNF, likely tomorrow
Assessment / Plan
Assessment / Plan
LUMBAR SPINE MRI
IMPRESSION:
1). Multilevel lumbar degenerative disc disease with grade 1 spondylolisthesis at L3-4 and L4-5, multilevel central canal stenosis and multilevel foraminal stenosis as detailed above
2). Postoperative changes including:
-Decompressive laminectomies at L3, L4 and L5
-Bilateral interconnected pedicle screws at L4 and L5
-There is a low T1 and T2 signal 1 cm Square lesion in the upper body of L1 which is presumably postoperative
3). Mild loss of vertebral body stature at L2 related to L2-[address]
IMPRESSION:
Total right hip arthroplasty hardware noted in place without overt complication. No evidence for periprosthetic fracture or loosening. No periprosthetic osteolysis.
Diverticulosis coli. Mild degenerative changes of the left hip. No acute fractures or dislocation.
Evaluation of additional soft tissue structures such as tendons and ligaments is limited by CT. Grossly, no abnormalities are seen.
#Acute on chronic lumbar radiculopathy
#Bilateral hip replacements
#Chronic opioid dependent daily basis
Increase hydrocodone to 4 times daily
Gabapentin dose adjusted/decrease due to low CrCl
Intravenous medication for additional pain control if needed
Bowel regimen standing
Physical and Occupational Therapy recs SNF
Hip and spine x-ray noted
MR lumbar spine ordered
No urinary or fecal incontinence. No saddle anesthesia
ice pack
lateral hip pain-?trochanteric bursitis
RLE CT without fracture - see results above
Per Dr. Juarez: this was Discussed with Dr. Donte Nowak at [phone].
Eventual SNF
#Hypertension urgency likely secondary to pain
#Primary hypertension
hold losartan with elevated creatinine - daughter and patient say no hx kidney disease (see below)
procardia started per Dr. Juarez - continue
MUNA versus CKD
-no hx elevated creatinine
-hold losartan with creatinine up to 2 this AM
-urine sodium, creatinine
-F/U PVR
-no NSAIDs
-if improved or stable tomorrow can likely DC with nephrology follow up
#GERD
Continue PPI
Hyperlipidemia
Continue home meds
Mood disorder
Continue with sertraline
Diabetes mellitus type 2
Hold metformin
Sliding scale Accu-Chek
Obtain A1c at 6
DVT prophylaxis heparin
Full code
PT/OT-SNF on dc.
d/w with daughter over phone call 02/21
Anticipated Discharge: 24 - 48 hours
Subjective/Interval History
-
Date of Service: February 22, 2024
states pain in leg is improved
no hx kidney disease
Objective Data
-
Labs:
Laboratory Results
02/22/24
06:58
WBC 7.6
Hgb 11.8 L
Hct 37.8
Plt Count 189
Sodium 137
Potassium 4.5
Chloride 104
Carbon Dioxide 22
BUN 42 H
Creatinine 2.0 H
Glucose 131 H
Calcium 9.7
Vital Signs:
Vital Signs
Temp Pulse Resp BP Pulse Ox
98.1 F 90 16 160/68 94
02/22/24 07:00 02/22/24 07:00 02/22/24 07:00 02/22/24 08:13 02/22/24 07:00
I&O
02/21/24 02/22/24 02/23/24
06:59 06:59 06:59
Intake Total 1720 / 1720 1500 / 1500
Balance 1720 / 1720 1500 / 1500
Review of Systems
-
History Source: Patient
All other systems: Reviewed and negative
Physical Exam
-
General: No Apparent Distress
Respiratory: Clear to Auscultation; Negative Wheezes
Cardiac: Regular Rhythm and S1/S2
GI: Soft and Nontender
Musculoskeletal: No Edema
Skin: Warm and Dry; Negative Rash
Neuro: AO x 3
Psych: Calm
Data Reviewed
-
Diagnostic Radiology: Report Reviewed by me
Labs: Labs Reviewed by me
[2024-02-22] MEDS: THERAGRAN 1 TABLET PO (08:23)
--- NOTE | 2024-02-22 08:59 | CM ---
Placed a call to Mar in admissions at [facility], to determine when bed may be available for patient as she appears to be getting closer to being medically stable per medical notes. Had to leave a voice mail message. Requested
return call for update.
Plan: Case management will continue to follow and assist with discharge planning. Patient selecting to go to [facility] post discharge.
[2024-02-22 12:02] VITALS: BP 150/75; BP 187/68
--- NOTE | 2024-02-22 12:08 | CM ---
Received call from patient's daughter (on voice mail) to determine if patient has bed available at [facility]. Placed a call to Mar in admissions who stated that patient may have a bed mid-week and requested return call tomorrow morning as
she will know more about her availability this week.
Placed return call to patient's daughter Tawny, to update. She expressed appreciation for update and was made aware that will continuously update her on when the bed may be available.
Tawny did not want to select an alternate SNF at this time as patient lives [facility].
Will call Mar tomorrow.
Plan: Case management will continue to follow and assist with discharge planning. Hopeful bed at [facility] upon discharge.
[2024-02-22 12:11] LABS: Glucose - Point of Care 213 mg/dl (70-99)
[2024-02-22] MEDS: NOVOLOG FLEXPEN-LOW RESISTANCE 3 UNITS SC (13:28)
[2024-02-22 14:30] VITALS: BP 154/57; PULSE 87; O2SAT 95
[2024-02-22 15:00] VITALS: BP 154/67
[2024-02-22 15:26] VITALS: BP 154/67
[2024-02-22 17:13] LABS: Urine Albumin 1+ (Neg - Trace); Urine Bilirubin Negative (Negative); Urine Character Clear (Clear); Urine Color Yellow; Urine Glucose Negative (Negative); Urine Ketone Negative (Negative); Urine Leukocyte Negative (Negative); Urine Nitrite Negative (Negative); Urine Occult Blood Negative (Negative); Urine Specific Gravity 1.015 (<1.030); Urine Urobilinogen Negative (Neg - 1+)
[2024-02-22 17:19] LABS: Glucose - Point of Care 180 mg/dl (70-99)
[2024-02-22 17:25] LABS: Urine Red Blood Cell 0-2 /HPF (0-2); Urine White Cell 0-2 /HPF (0-5)
[2024-02-22] MEDS: NOVOLOG FLEXPEN-LOW RESISTANCE 1 UNITS SC (17:31)
[2024-02-22 17:48] LABS: Urine Sodium 85 mmol/L (30-90)
[2024-02-22] MEDS: MIRALAX 17 GRAMS PO (21:14)
[2024-02-22 21:46] LABS: Glucose - Point of Care 146 mg/dl (70-99)
[2024-02-22 23:00] VITALS: BP 145/51
[2024-02-23] MEDS: DILAUDID 0.5 MG IV ×2 (05:45→10:58)
[2024-02-23 07:32] VITALS: BP 186/75
[2024-02-23] MEDS: ZETIA 10 MG PO (07:42)
[2024-02-23] MEDS: PROCARDIA XL (EXTENDED RELEASE) 30 MG PO ×2 (07:42→21:27)
[2024-02-23] MEDS: OSCAL CAL 500 500 MG PO (07:43)
[2024-02-23] MEDS: LIPITOR 10 MG PO (07:43)
[2024-02-23] MEDS: PROTONIX 40 MG PO (07:43)
[2024-02-23] MEDS: NEURONTIN 300 MG PO ×2 (07:43→21:24)
[2024-02-23] MEDS: THERAGRAN 1 TABLET PO (07:43)
[2024-02-23] MEDS: ZOLOFT 50 MG PO (07:43)
[2024-02-23] MEDS: SENOKOT-S 1 TABLET PO ×2 (07:43→21:24)
[2024-02-23] MEDS: ASPIR LOW (ENTERIC COATED) 81 MG PO (07:44)
[2024-02-23] MEDS: HEPARIN 5000 UNITS SC ×2 (07:44→21:24)
[2024-02-23] MEDS: NORCO 7.5/325 1 TABLET PO ×4 (07:44→21:27)
[2024-02-23 07:59] LABS: Glucose - Point of Care 112 mg/dl (70-99)
[2024-02-23 08:14] LABS: Blood Urea Nitrogen 38 mg/dl (7-17); Calcium 9.9 mg/dl (8.4-10.2); Carbon Dioxide 25 mmol/L (22-30); Chloride 105 mmol/L (98-107); Estimated Creatinine Clearance 17 ml/min; Glucose 120 mg/dl (70-99); Magnesium 1.8 mg/dl (1.6-2.3); Potassium 4.6 mmol/L (3.5-5.1); Sodium 138 mmol/L (135-145); eGFR 23.73
--- NOTE | 2024-02-23 08:49 | W.PN.HOSP.TC ---
Today's Communication/Plan
-
renal US
hold ARB
hold metformin
renal consult
-SNF likely tomorrow
Assessment / Plan
Assessment / Plan
LUMBAR SPINE MRI
IMPRESSION:
1). Multilevel lumbar degenerative disc disease with grade 1 spondylolisthesis at L3-4 and L4-5, multilevel central canal stenosis and multilevel foraminal stenosis as detailed above
2). Postoperative changes including:
-Decompressive laminectomies at L3, L4 and L5
-Bilateral interconnected pedicle screws at L4 and L5
-There is a low T1 and T2 signal 1 cm Square lesion in the upper body of L1 which is presumably postoperative
3). Mild loss of vertebral body stature at L2 related to L2-[address]
IMPRESSION:
Total right hip arthroplasty hardware noted in place without overt complication. No evidence for periprosthetic fracture or loosening. No periprosthetic osteolysis.
Diverticulosis coli. Mild degenerative changes of the left hip. No acute fractures or dislocation.
Evaluation of additional soft tissue structures such as tendons and ligaments is limited by CT. Grossly, no abnormalities are seen.
#Acute on chronic lumbar radiculopathy
#Bilateral hip replacements
#Chronic opioid dependent daily basis
Increase hydrocodone to 4 times daily
Gabapentin dose adjusted/decrease due to low CrCl
Intravenous medication for additional pain control if needed
Bowel regimen standing
Physical and Occupational Therapy recs SNF
Hip and spine x-ray noted
MR lumbar spine ordered
No urinary or fecal incontinence. No saddle anesthesia
ice pack
RLE CT without fracture - see results above
Per Dr. Juarez: this was Discussed with Dr. Donte Nowak at [phone].
Eventual SNF
#Hypertension urgency likely secondary to pain
#Primary hypertension
hold losartan with elevated creatinine - daughter and patient say no hx kidney disease (see below)
procardia started per Dr. Juarez - continue
MUNA versus CKD
-per patient and daughter - no hx kidney disease - awaiting outpatient records
-hold losartan with creatinine up to 2 this AM (was given on 02/21)
-urine sodium, creatinine - FeNa = 1.8%
-PVR was 65 on 02/21
-no NSAIDs - patient states she wasn't taking NSAIDs prior to admission
-hold metformin
-obtain renal US
-renal consult
#GERD
Continue PPI
Hyperlipidemia
Continue home meds
Mood disorder
Continue with sertraline
Diabetes mellitus type 2
Hold metformin
Sliding scale Accu-Chek
Obtain A1c at 6
DVT prophylaxis heparin
Full code
PT/OT-SNF on dc.
d/w with daughter over phone call 02/21
Anticipated Discharge: 24 - 48 hours
Subjective/Interval History
-
Date of Service: February 23, 2024
return of sciatica pain overnight, difficult getting up
Objective Data
-
Labs:
Laboratory Results
02/23/24
06:52
Sodium 138
Potassium 4.6
Chloride 105
Carbon Dioxide 25
BUN 38 H
Creatinine 2.0 H
Glucose 120 H
Calcium 9.9
Vital Signs:
Vital Signs
Temp Pulse Resp BP Pulse Ox
97.9 F 96 16 186/75 95
02/23/24 07:32 02/23/24 07:42 02/23/24 07:32 02/23/24 07:42 02/23/24 07:32
I&O
02/22/24 02/23/24 02/24/24
06:59 06:59 06:59
Intake Total 1500 / 1500 1200 / 1200
Balance 1500 / 1500 1200 / 1200
Review of Systems
-
History Source: Patient
All other systems: Reviewed and negative
Physical Exam
-
General: No Apparent Distress
Respiratory: Clear to Auscultation; Negative Wheezes
Cardiac: Regular Rhythm and S1/S2
GI: Soft and Nontender
Musculoskeletal: No Edema
Skin: Warm and Dry; Negative Rash
Neuro: AO x 3
Psych: Calm
Data Reviewed
-
Diagnostic Radiology: Report Reviewed by me
Labs: Labs Reviewed by me
[2024-02-23] MEDS: NOVOLOG FLEXPEN-LOW RESISTANCE SC ×3 (08:53→16:57)
[2024-02-23 12:12] LABS: Glucose - Point of Care 124 mg/dl (70-99)
[2024-02-23] MEDS: LIDOCAINE 4% PATCH 1 PATCH TOPICAL (12:16)
[2024-02-23 15:09] VITALS: BP 172/69
[2024-02-23 16:42] LABS: Glucose - Point of Care 118 mg/dl (70-99)
--- NOTE | 2024-02-23 16:50 | W.CON.NEPH ---
Consultation
-
Date/Time Consultation Requested: 02/23/2024 8:49AM
Date/Time Consultation Performed: 02/23/24 4:53PM
Requesting Provider: Autumn [place]
Performing Provider: Jennifer Mcmahon
Reason for Consultation: CKD
Medical History
-
Chief Complaint: CKD
History of Present Illness:
Ms. Tovar is an 88YOF with PMH of primary hypertension, OA, chronic opioid dependence, neuropathy, CAD, mood disorder, GERD, ?CKD, DM who presents to the hospital for hip and leg pain. She has been getting dilaudid and is planned for SNF
placement. Her blood pressures have been higher during the hospitalization due to pain. Her kidney function has ranged from 1.7-2. Per patient and daughter no history of chronic kidney disease and we do not have records. Patient denies trouble with
uriation, dysuria, hematuria. States that she is not a heavy NSAID user. Has a significant cardiac history. Only has had diabetes for a few years and realtively well controlled.
Past Medical History
as above
Past Surgical History: Cardiac (CABG) and Orthopedic (bilateral hip replacement, lumbar spinal fusion)
Social History
Tobacco: Non-Smoker
Alcohol: None
Drug: None
Living: Senior Living
Family History
Family History: Not Pertinent
Allergies / Home Medications
Allergy/AdvReac Type Severity Reaction Status Date / Time
No Known Allergies Allergy Unverified 02/17/24 07:57
�Medication �Instructions �Recorded �Confirmed �Type
aspirin 81 mg tablet,delayed 81 mg PO DAILY Blood Clot 02/17/24 02/17/24 History
release Prevention/Tx
calcium carbonate 500 mg PO DAILY Supplement 02/17/24 02/17/24 History
celecoxib 200 mg capsule (Celebrex) 200 mg PO BID Pain 02/17/24 02/17/24 History
ezetimibe 10 mg-simvastatin 20 mg 1 tab PO DAILY High Cholesterol 02/17/24 02/17/24 History
tablet (Vytorin)
gabapentin 300 mg capsule 300 mg PO TID Neurological 02/17/24 02/17/24 History
Condition
hydrocodone 10 mg-acetaminophen 1 tab PO TID Pain 02/17/24 02/17/24 History
325 mg tablet
losartan 100 mg tablet 100 mg PO DAILY Blood Pressure 02/17/24 02/17/24 History
metformin 500 mg tablet,extended 500 mg PO BID Diabetes 02/17/24 02/17/24 History
release 24 hr
omega 8-qhw-[id number]-fish oil 1,000 mg 1 cap PO DAILY Supplement 02/17/24 02/17/24 History
(120 mg-180 mg) capsule (Fish Oil)
omeprazole 40 mg capsule,delayed 40 mg PO DAILY Gastrointestinal 02/17/24 02/17/24 History
release Issue
sertraline 50 mg tablet 50 mg PO DAILY Depression 02/17/24 02/17/24 History
therapeutic multivitamin 1 tab PO DAILY Supplement 02/17/24 02/17/24 History
Review of Systems
-
All other systems: Negative unless noted
Musculoskeletal: Joint Pain, Muscle Pain, Muscle Stiffness and Edema
Physical Exam
Vital Signs
Vital Signs
Temp Pulse Resp BP Pulse Ox
97.4 F 76 18 172/69 98
02/23/24 15:09 02/23/24 15:09 02/23/24 15:09 02/23/24 15:09 02/23/24 15:09
Lab Results
WBC 7.6 10^3/uL (4.8-10.8) 02/22/24 06:58
RBC 4.35 10^6/uL (4.20-5.40) 02/22/24 06:58
Hgb 11.8 g/dL (12.0-16.0) L 02/22/24 06:58
Hct 37.8 % (37.0-47.0) 02/22/24 06:58
Plt Count 189 10^3/uL (130-400) 02/22/24 06:58
Sodium 138 mmol/L (135-145) 02/23/24 06:52
Potassium 4.6 mmol/L (3.5-5.1) 02/23/24 06:52
Chloride 105 mmol/L (98-107) 02/23/24 06:52
Carbon Dioxide 25 mmol/L (22-30) 02/23/24 06:52
BUN 38 mg/dl (7-17) H 02/23/24 06:52
Creatinine 2.0 mg/dL (0.6-1.0) H 02/23/24 06:52
eGFR 23.73 02/23/24 06:52
Glucose 120 mg/dl (70-99) H 02/23/24 06:52
Calcium 9.9 mg/dl (8.4-10.2) 02/23/24 06:52
Albumin Cancelled 02/17/24 09:13
Physical Exam
General: AOx3, No Distress and Nontoxic
HEENT: PERRL, EOMI, Anicteric, Conjunctivae Clear, Ear/Nose Intact, Hearing Normal (with hearing aids) and Facial Symmetry
Respiratory: Clear
Cardiac: S1/S2, Regular Rate/Rhythm and Edema
Breast: Deferred by me
Abdomen: Soft, Nontender, Nondistended and Normal Bowel Sounds
Rectal: Deferred by Provider
Musculoskeletal: No Clubbing, No Cyanosis and Edema
Skin: No Rash, Warm and Dry
Neuro: Nonfocal/Grossly Intact
Hematologic/Lymphatic: No Cervical Lymphadenopathy
Psych: Mood/afflect pleasant, Insight/judgement good and Appropriate
Data Reviewed
-
Radiology: Report Reviewed by me
Ultrasound: Report Reviewed by me (no hydro, calculus, simple cyst )
Assessment/Plan
-
Assessment:
Acute on chronic lumbar radiculopathy
HTN
MUNA vs. CKD
GERD
T2DM
Plan:
- please obtain outside records to establish Cr baseline. while in hospital it appears to be 1.7-2
- KUS without evidence of obstruction or anatomic defects
- UA relatively bland with 1+ albumin, hold off on UPCR in the setting of hypertensive emergency as it will be elevated
- hypertension likely in the setting of pain, as patient states normally it is not this high
- likely should establish care with nephrology if Cr is at baseline for CKD. CKD 2/2 to cardiorenal vs. ?HTN vs. DM. urine is reassuringly very bland making GN much less likely
- continue to trend BMPs
- avoid nephrotoxic agents
[2024-02-23 17:39] VITALS: BP 123/68
[2024-02-23] MEDS: MIRALAX 17 GRAMS PO (21:24)
[2024-02-23 22:11] LABS: Glucose - Point of Care 128 mg/dl (70-99)
[2024-02-23 23:35] VITALS: BP 158/69
[2024-02-24] MEDS: ROXICODONE 5 MG PO (04:42)
--- NOTE | 2024-02-24 04:45 | DOWNTIME ---
There was a [employer] Downtime on 02/24/2024 from 0100 to 02/24/2024 at 0439. Downtime documentation of patient's care, including medication administrations, has been reconciled in the electronic record per guidelines. Refer to the
patient's paper chart under the miscellaneous tab to see printed paper medication records and downtime forms.
[2024-02-24 07:38] LABS: Blood Urea Nitrogen 35 mg/dl (7-17); Carbon Dioxide 25 mmol/L (22-30); Chloride 103 mmol/L (98-107); Estimated Creatinine Clearance 20 ml/min; Glucose 127 mg/dl (70-99); Sodium 137 mmol/L (135-145); eGFR 28.84
[2024-02-24 07:52] VITALS: BP 165/75
[2024-02-24 08:16] LABS: Glucose - Point of Care 102 mg/dl (70-99)
[2024-02-24] MEDS: NOVOLOG FLEXPEN-LOW RESISTANCE SC (08:36)
--- NOTE | 2024-02-24 08:47 | W.PN.HOSP.TC ---
Today's Communication/Plan
-
dispo planning for SNF
Assessment / Plan
Assessment / Plan
LUMBAR SPINE MRI
IMPRESSION:
1). Multilevel lumbar degenerative disc disease with grade 1 spondylolisthesis at L3-4 and L4-5, multilevel central canal stenosis and multilevel foraminal stenosis as detailed above
2). Postoperative changes including:
-Decompressive laminectomies at L3, L4 and L5
-Bilateral interconnected pedicle screws at L4 and L5
-There is a low T1 and T2 signal 1 cm Square lesion in the upper body of L1 which is presumably postoperative
3). Mild loss of vertebral body stature at L2 related to L2-[address] H[address]
IMPRESSION:
Total right hip arthroplasty hardware noted in place without overt complication. No evidence for periprosthetic fracture or loosening. No periprosthetic osteolysis.
Diverticulosis coli. Mild degenerative changes of the left hip. No acute fractures or dislocation.
Evaluation of additional soft tissue structures such as tendons and ligaments is limited by CT. Grossly, no abnormalities are seen.
#Acute on chronic lumbar radiculopathy
#Bilateral hip replacements
#Chronic opioid dependent daily basis
Increased hydrocodone to 4 times daily
Gabapentin dose adjusted/decrease due to low CrCl
Intravenous medication for additional pain control if needed
Bowel regimen standing
Physical and Occupational Therapy recs SNF
Hip and spine x-ray noted
MR lumbar spine ordered
No urinary or fecal incontinence. No saddle anesthesia
ice pack
RLE CT without fracture - see results above
Per Dr. Juarez: this was Discussed with Dr. Donte Nowak at [phone].
dispo planning for SNF
#Hypertension urgency likely secondary to pain
#Primary hypertension
hold losartan with elevated creatinine - daughter and patient say no hx kidney disease (see below)
procardia started per Dr. Juarez - continue
MUNA versus CKD
-per patient and daughter - no hx kidney disease - awaiting outpatient records
-hold losartan
-urine sodium, creatinine - FeNa = 1.8%
-PVR was 65 on 02/21
-no NSAIDs - patient states she wasn't taking NSAIDs prior to admission; celebrex on med list - will stop
-hold metformin
-renal US without hydro
-renal consult appreciated
-cr 1.7 this AM, OK for DC with close follow up labs. hold losartan on DC - can resume if this is patient's baseline -discussed plan with renal
#GERD
Continue PPI
Hyperlipidemia
Continue home meds
Mood disorder
Continue with sertraline
Diabetes mellitus type 2
Hold metformin
Sliding scale Accu-Chek
Obtain A1c at 6
DVT prophylaxis heparin
Full code
PT/OT-SNF on dc.
Anticipated Discharge: Within 24 hours
Subjective/Interval History
-
Date of Service: February 24, 2024
continues to have some pain, otherwise feeling okay
Objective Data
-
Labs:
Laboratory Results
02/24/24
06:55
Sodium 137
Potassium 5.0
Chloride 103
Carbon Dioxide 25
BUN 35 H
Creatinine 1.7 H
Glucose 127 H
Calcium 10.0
Vital Signs:
Vital Signs
Temp Pulse Resp BP Pulse Ox
98.2 F 94 17 165/75 98
02/24/24 07:52 02/24/24 07:52 02/24/24 07:52 02/24/24 07:52 02/24/24 07:52
I&O
02/23/24 02/24/24 02/25/24
06:59 06:59 06:59
Intake Total 1200 / 1200 420 / 420
Balance 1200 / 1200 420 / 420
Review of Systems
-
History Source: Patient
All other systems: Reviewed and negative
Physical Exam
-
General: No Apparent Distress
Respiratory: Clear to Auscultation; Negative Wheezes
Cardiac: Regular Rhythm and S1/S2
GI: Soft and Nontender
Musculoskeletal: No Edema
Skin: Warm and Dry; Negative Rash
Neuro: AO x 3
Psych: Calm
Data Reviewed
-
Diagnostic Radiology: Report Reviewed by me
[2024-02-24] MEDS: PROCARDIA XL (EXTENDED RELEASE) 30 MG PO (08:48)
[2024-02-24] MEDS: ZETIA 10 MG PO (08:48)
[2024-02-24] MEDS: NORCO 7.5/325 1 TABLET PO ×2 (08:48→12:48)
[2024-02-24] MEDS: LIPITOR 10 MG PO (08:49)
[2024-02-24] MEDS: LIDOCAINE 4% PATCH 1 PATCH TOPICAL (08:49)
[2024-02-24] MEDS: ZOLOFT 50 MG PO (08:49)
[2024-02-24] MEDS: NEURONTIN 300 MG PO (08:49)
[2024-02-24] MEDS: ASPIR LOW (ENTERIC COATED) 81 MG PO (08:49)
[2024-02-24] MEDS: PROTONIX 40 MG PO (08:49)
[2024-02-24] MEDS: THERAGRAN 1 TABLET PO (08:50)
[2024-02-24] MEDS: SENOKOT-S 1 TABLET PO (08:50)
[2024-02-24] MEDS: OSCAL CAL 500 500 MG PO (08:50)
[2024-02-24] MEDS: HEPARIN 5000 UNITS SC (08:50)
--- NOTE | 2024-02-24 09:48 | CM ---
Addendum entered by ERNESTO Cage 02/24/24 11:26:
Spoke with patient's daughter who is agreeable to transfer. IMM reviewed and on chart.
Addendum entered by ERNESTO Cage 02/24/24 10:48:
Faxed Passr to Mar in admissions. She provided # for report [phone] and fax# [phone]
Will relay to RN and unit.
Original Note:
Received text from attending stating that patient is medically cleared for discharge. Placed a call to Mar in admissions at the [facility]. Mar confirmed bed for today. She requested a new PASSR and neg
Covid test. Will update unit and complete medical necessity and transfer sheet. Asked attending for Covid test prior to transfer.
Plan: Case management will continue to follow and assist with discharge planning. Patient stable for transfer over to [facility].
--- NOTE | 2024-02-24 10:41 | W.DS.TRANS ---
DC Summary - [facility]
-
Discharge Instructions:
Discharge Diagnosis/Procedures acute on chronic lumbar radiculopathy
Diet Diabetic, Carb Controlled
Activity As tolerated
Driving Restrictions No driving
Blood Work BMP (labs to look at kidney function) in one
week
Other Services PT,OT
Instructions:
Stand-Alone Forms:
Changes to Home Medications: Yes
Discharge Medications:
DC Medications w/original date entered in [email or web address]
aspirin 81 mg tablet,delayed release 81 mg PO DAILY Blood Clot Prevention/Tx 02/17/24
calcium carbonate 500 mg PO DAILY Supplement 02/17/24
ezetimibe 10 mg-simvastatin 20 mg tablet (Vytorin) 1 tab PO DAILY High Cholesterol 02/17/24
omega 4-czh-ouq-fish oil 1,000 mg (120 mg-180 mg) capsule (Fish Oil) 1 cap PO DAILY Supplement 02/17/24
omeprazole 40 mg capsule,delayed release 40 mg PO DAILY Gastrointestinal Issue 02/17/24
sertraline 50 mg tablet 50 mg PO DAILY Depression 02/17/24
therapeutic multivitamin 1 tab PO DAILY Supplement 02/17/24
gabapentin 300 mg capsule 300 mg PO BID #60 caps 02/24/24
hydrocodone 7.5 mg-acetaminophen 325 mg tablet 1 tab PO QID #20 tabs 02/24/24
lidocaine 4 % topical patch 1 patch topical DAILY #30 ea 02/24/24
nifedipine 30 mg tablet,extended release 30 mg PO BID #60 tabs 02/24/24
oxycodone 5 mg tablet 5 mg PO Q4HPRN PRN severe pain breakthrough #5 tabs 02/24/24
polyethylene glycol 3350 17 gram oral powder packet (HealthyLax) 17 g PO HS #30 ea 02/24/24
sennosides 8.6 mg-docusate sodium 50 mg tablet (Stool Softener-Stimulant Laxative) 1 tab PO BID #60 tabs 02/24/24
Home Medication Changes
Stop Losartan. This medication can be resumed if your outpatient physician determines that your renal function is at baseline.
You are newly started on nifedipine twice a day for blood pressure. Your blood pressure will be further monitored at [facility].
Your Hydrocodone-Acetaminophen is increased to 4x/day.
Your Gabapentin is decreased to twice a day based on your renal function.
Stop Celebrex given kidney dysfunction.
Stop metformin given kidney dysfunction.
Pending Results: No
[2024-02-24 11:08] LABS: COVID-19 Antigen Negative (Negative)
[2024-02-24 11:40] LABS: Glucose - Point of Care 223 mg/dl (70-99)
[2024-02-24] MEDS: NOVOLOG FLEXPEN-LOW RESISTANCE 2 UNITS SC (12:48)
--- NOTE | 2024-02-24 13:50 | W.DCSUMMARY ---
Discharge Summary
Discharge Data
Date of Admission: 02/17/24
Date of Discharge: 02/24/24
-
Pending Results: No
Hospital Course
Discharging Physician : Dr. Autumn Newell
Disposition : SNF
Primary care physician : Dr. Tunde Forte
Principal Discharge diagnosis : acute on chronic pain secondary to lumbar radiculopathy; acute kidney injury versus more likely chronic kidney disease stage III
Hospital Course :
Ms. Martha Tovar is a 88 yo woman with hx primary hypertension, CAD, GERD, DM, lumbar radiculopathy with chronic pain and opiate dependence presents to the ER with worsening pain over the past 2-3 weeks. Patient used to get BERT but they stopped
working and were thus discontinued. She was admitted to medicine for pain control, PT and OT. Her [employer] [place] was increased from TID to QID. Her gabapentin dose was adjusted for kidney dysfunction (see below). She is discharged to SNF for
continued rehab.
Patient's creatinine during hospitalization ranged from 1.5-2. It is stable on day of discharge, down to 1.7. It is unclear what patient's baseline is as had difficulty obtaining outpatient records. FeNa 1.8%; no evidence of obstruction or
hydronephrosis. UA relatively bland. Her Losartan is held at discharge and can be resumed as outpatient if creatinine found to be at baseline. She may need referral to nephrology (denies having a radio time salesperson). Seen by nephrology during this
hospitalization. Labs to be repeated in 5-7 days.
Her metformin is stopped given creatinine > 1.5 and A1c 6. She is told to eat a diabetic diet; outpatient physician to determine if need for new DM agent.
She was hypertensive during hospital stay. With stopping losartan, she is started on nifedipine BID. BP to be more closely monitored at SNF.
Time spent on discharge was 35 minutes.
Important imaging findings :
HIP X-RAY; LUMBAR SPINE X-RAY 02/17/24
IMPRESSION:
1. No radiographic evidence for an acute osseous abnormality of the lumbar spine or right hip.
2. Chronic advanced degenerative changes of the lumbar spine.
3. Cholelithiasis.
LUMBAR SPINE MRI 02/19/24
IMPRESSION:
1). Multilevel lumbar degenerative disc disease with grade 1 spondylolisthesis at L3-4 and L4-5, multilevel central canal stenosis and multilevel foraminal stenosis as detailed above
2). Postoperative changes including:
-Decompressive laminectomies at L3, L4 and L5
-Bilateral interconnected pedicle screws at L4 and L5
-There is a low T1 and T2 signal 1 cm Square lesion in the upper body of L1 which is presumably postoperative
3). Mild loss of vertebral body stature at L2 related to L2-[address] HIP 02/21/24
IMPRESSION:
Total right hip arthroplasty hardware noted in place without overt complication. No evidence for periprosthetic fracture or loosening. No periprosthetic osteolysis.
Diverticulosis coli. Mild degenerative changes of the left hip. No acute fractures or dislocation.
Evaluation of additional soft tissue structures such as tendons and ligaments is limited by CT. Grossly, no abnormalities are seen.
Procedure findings :
Discharge Plan
-
Patient Disposition: Assisted/SNF
Discharge Diagnosis/Procedures: acute on chronic lumbar radiculopathy
Diet: Diabetic, Carb Controlled
Activity: As tolerated
Driving Restrictions: No driving
Blood Work: BMP (labs to look at kidney function) in one week
Other Services: PT and OT
Activity Restrictions/Additional Instructions:
Your primary care doctor may refer you to a radio time salesperson (kidney specialist) based on your follow up labs.
Referrals:
Tunde Forte MD [Family Provider] - in less than 1 week
Additional Discharge Medication Instructions: Stop Losartan. This medication can be resumed if your outpatient physician determines that your renal function is at baseline.
You are newly started on nifedipine twice a day for blood pressure. Your blood pressure will be further monitored at SNF.
Your Hydrocodone-Acetaminophen is increased to 4x/day.
Your Gabapentin is decreased to twice a day based on your renal function.
Stop Celebrex given kidney dysfunction.
Stop metformin given kidney dysfunction.
Prescriptions:
New
lidocaine 4 % Adhesive Patch,Medicated
1 patch topical DAILY Qty: 30 0RF
polyethylene glycol 3350 [HealthyLax] 17 gram Powder In Packet
17 g PO HS Qty: 30 0RF
sennosides-docusate sodium [Stool Softener-Stimulant Laxat] 8.6-50 mg Tablet
1 tab PO BID Qty: 60 0RF
nifedipine 30 mg Tablet Extended Release
30 mg PO BID Qty: 60 0RF
hydrocodone-acetaminophen 7.5-325 mg Tablet
1 tab PO QID Qty: 20 0RF
gabapentin 300 mg Capsule
300 mg PO BID Qty: 60 0RF
oxycodone 5 mg Tablet
5 mg PO Q4HPRN PRN (Reason: severe pain breakthrough) Qty: 5 0RF
Continued
therapeutic multivitamin Tablet
1 tab PO DAILY
omeprazole 40 mg Capsule,Delayed Release(Dr/Ec)
40 mg PO DAILY
aspirin 81 mg Tablet,Delayed Release (Dr/Ec)
81 mg PO DAILY
calcium carbonate 500 mg calcium (1,250 mg) Tablet
500 mg PO DAILY
sertraline 50 mg Tablet
50 mg PO DAILY
ezetimibe-simvastatin [Vytorin 10-20] 10-20 mg Tablet
1 tab PO DAILY
omega 2-usa-ykd-fish oil [Fish Oil] 1,000 mg (120 mg-180 mg) Capsule
1 cap PO DAILY
Discontinued
hydrocodone-acetaminophen 10-325 mg Tablet
1 tab PO TID
gabapentin 300 mg Capsule
300 mg PO TID
losartan 100 mg Tablet
100 mg PO DAILY
metformin 500 mg Tablet Extended Release 24 Hr
500 mg PO BID
celecoxib [Celebrex] 200 mg Capsule
200 mg PO BID
Discharge Orders:
Discharge Patient (As Directed); Ordered 02/24/24
Ordered By: Autumn Newell
Discharge Date and Time
Print Language: MACEDONIAN
== END 2024-02-24 14:32 | DRG 552 ==
LOC: 3 WEST ACU 13:50
PROVIDERS: Physician Assistant; ADMITTING PHYSICIAN Hospitalist; ATTENDING PHYSICIAN Student in an Organized Health Care Education/Training Program; CONSULT PHYSICIAN Specialist; EMERGENCY PHYSICIAN Student in an Organized Health Care Education/Training Program; FAMILY PHYSICIAN Internal Medicine
DX: M51.16 Intervertebral disc disorders with radiculopathy, lumbar region (principal); N17.9 Acute kidney failure, unspecified; F11.20 Opioid dependence, uncomplicated; M47.26 Other spondylosis with radiculopathy, lumbar region; I12.9 Hypertensive chronic kidney disease with stage 1 through stage 4 chronic kidney disease, or unspecified chronic kidney disease; E11.22 Type 2 diabetes mellitus with diabetic chronic kidney disease; N18.30 Chronic kidney disease, stage 3 unspecified; I25.10 Atherosclerotic heart disease of native coronary artery without angina pectoris; I16.0 Hypertensive urgency; K21.9 Gastro-esophageal reflux disease without esophagitis; K80.20 Calculus of gallbladder without cholecystitis without obstruction; G89.29 Other chronic pain; Z79.84 Long term (current) use of oral hypoglycemic drugs; Z79.82 Long term (current) use of aspirin
CPT/HCPCS: 72110; 72148; 73502; 73700; 76770; 80048; 81003; 81015; 82570; 82962; 83036; 83735; 84132; 84300; 85025; 87070; 87811; 93005; 96374; 96375; 97116; 97162; 97166; 97530; 97535; 99285

== ENCOUNTER 2025-06-28 10:39 | Emergency (ER) | payer MEDICARE, SELFPAY ==
[2025-06-28 10:54] VITALS: BP 143/47
[2025-06-28 11:00] VITALS: BMI 34.1
[2025-06-28 11:04] VITALS: BP 142/48
--- NOTE | 2025-06-28 11:22 | ED.GENMED ---
History of Present Illness
<Prince Aviles MD - Last Filed: 06/28/25 12:30>
General
Chief Complaint: Chest Pain
Source: patient
Exam Limitations: none
Time Seen by Provider: 06/28/25 10:55
Nursing documentation reviewed up to this point in time: agreed with
History of Present Illness
History of Present Illness:
Patient with history of CAD, status post CABG 20 years ago, when her symptoms consist of dyspnea with exertion, presents to ED secondary to sudden onset of chest pain when she was having bowel movement. Chest pain described as sharp, nonradiating,
without any alleviating or exacerbating factors. Denies trauma. Denies dizziness or weakness. Denies previous history of similar symptoms. Chest pain gradually improved over the next hour. At the time of evaluation ED, patient states that her
chest pain has resolved completely. Of note, patient was diagnosed with left lower leg DVT 2 weeks ago, and has been taking Eliquis daily. Denies back pain. Denies fever or chills.
Past History
<Prince Aviles MD - Last Filed: 06/28/25 12:30>
Past History
ED Past Medical History: HTN, Hypercholesterolemia, NIDDM, Psychiatric and Other (Neuropathy)
ED Past Surgical History: Orthopedic
Review of Systems
<Prince Aviles MD - Last Filed: 06/28/25 12:30>
Review of Systems
Allergies reviewed?: Yes
All Other Systems: ROS reviewed and negative except as documented in HPI and ROS
Constitutional: Reports no symptoms; Denies fever
Respiratory: Denies cough or trouble breathing
Cardiac: Reports chest pain; Denies palpitations
ABD/GI: Reports no symptoms; Denies nausea or vomiting
Musculoskeletal: Reports no symptoms
Skin: Reports no symptoms
Neurological: Reports no symptoms
Phy Exam
<Prince Aviles MD - Last Filed: 06/28/25 12:30>
Physical Exam
Physical Exam:
Physical Exam
General: no apparent distress, not acutely ill. afebrile
Head: nc/at. eomi
Neck: supple. normal range of motion.
Heart: s1/s2 regular rate and rhythm
Lungs: no acute respiratory distress. clear bilaterally. chest wall nontender to palpation
Abdomen: normal bowel sounds. not tender.
Neuro: alert and oriented x 3. no focal neurological deficits
Skin: no rash
Psychiatric: well kept. interactive and cooperative
Extremities: no edema. no calf tenderness.
Scores
<Shantanu Slade DO - Last Filed: 06/28/25 15:32>
Heart Score for Chest Pain Patients
STEMI patient?: Not applicable
Course
<Prince Aviles MD - Last Filed: 06/28/25 12:30>
Orders/Labs/Results
Orders:
Orders
06/28/25 10:53
Electrocardiogram (*1) Urgent
Reason for Study: Chest Pain
Cardiac Monitoring- Treatment ONCE
EKG- Treatment ONCE
IV Insert/Care/Rem.- Treatment PRN
06/28/25 11:19
Basic Metabolic Panel Urgent
Complete Blood Count/With Diff Urgent
Pro-BNP [NT-proBNP] Urgent
Troponin I Urgent
06/28/25 12:39
CR Chest - 2 Views Urgent
Comment:
Reason For Exam: chest pain
06/28/25 14:23
Troponin I Urgent
06/28/25 15:30
Hydrocodone 5/APAP 325 [[place] 5/325] 2 tablet PO NOW STA
Abnormal Lab Results
06/28/25
11:19
RBC 3.64 L 10^6/uL
(4.20-5.40)
Hgb 10.2 L g/dL
(12.0-16.0)
Hct 32.2 L %
(37.0-47.0)
MCHC 31.7 L g/dL
(33.0-37.0)
RDW 14.7 H %
(11.5-14.5)
MPV 11.0 H fL
(7.4-10.4)
Absolute Neuts (auto) 6.8 H 10^3/uL
(1.4-6.5)
Absolute Monos (auto) 0.8 H 10^3/uL
(0.1-0.6)
BUN 59 H mg/dl
(7-17)
Creatinine 1.8 H mg/dL
(0.6-1.0)
Glucose 129 H mg/dl
(70-99)
06/28/25 11:19
06/28/25 11:19
Vital Signs
Initial and Last Documented VS:
Initial Vital Signs
Pulse Resp Pulse Ox
81 20 91
06/28/25 10:52 06/28/25 10:52 06/28/25 10:52
Last Documented Vital Signs
Temp Pulse Resp BP Pulse Ox
37.2 C 75 21 114/49 95
06/28/25 10:54 06/28/25 14:30 06/28/25 14:30 06/28/25 14:00 06/28/25 14:30
<Shantanu Slade DO - Last Filed: 06/28/25 15:32>
Orders/Labs/Results
Orders:
Orders
06/28/25 10:53
Electrocardiogram (*1) Urgent
Reason for Study: Chest Pain
Cardiac Monitoring- Treatment ONCE
EKG- Treatment ONCE
IV Insert/Care/Rem.- Treatment PRN
06/28/25 11:19
Basic Metabolic Panel Urgent
Complete Blood Count/With Diff Urgent
Pro-BNP [NT-proBNP] Urgent
Troponin I Urgent
06/28/25 12:39
CR Chest - 2 Views Urgent
Comment:
Reason For Exam: chest pain
06/28/25 14:23
Troponin I Urgent
06/28/25 15:30
Hydrocodone 5/APAP 325 [[place] 5/325] 2 tablet PO NOW STA
Abnormal Lab Results
06/28/25
11:19
RBC 3.64 L 10^6/uL
(4.20-5.40)
Hgb 10.2 L g/dL
(12.0-16.0)
Hct 32.2 L %
(37.0-47.0)
MCHC 31.7 L g/dL
(33.0-37.0)
RDW 14.7 H %
(11.5-14.5)
MPV 11.0 H fL
(7.4-10.4)
Absolute Neuts (auto) 6.8 H 10^3/uL
(1.4-6.5)
Absolute Monos (auto) 0.8 H 10^3/uL
(0.1-0.6)
BUN 59 H mg/dl
(7-17)
Creatinine 1.8 H mg/dL
(0.6-1.0)
Glucose 129 H mg/dl
(70-99)
06/28/25 11:19
06/28/25 11:19
Vital Signs
Initial and Last Documented VS:
Initial Vital Signs
Pulse Resp Pulse Ox
81 20 91
06/28/25 10:52 06/28/25 10:52 06/28/25 10:52
Last Documented Vital Signs
Temp Pulse Resp BP Pulse Ox
37.2 C 75 21 114/49 95
06/28/25 10:54 06/28/25 14:30 06/28/25 14:30 06/28/25 14:00 06/28/25 14:30
<Prince Aviles MD - Last Filed: 06/28/25 12:30>
MDM/Problems Addressed
MDM/Problems Addressed:
Patient remains chest pain-free during observation. Initial troponin negative with unremarkable EKG. However in light of initial hypoxia along with recently diagnosed DVT, will obtain VQ scan, as patient has chronic kidney disease. If low
probability and patient remained chest pain-free along with repeat troponin, patient may be able to be discharged back home for an outpatient consultation with her primary parts facilitator.
<Prince Aviles MD - Last Filed: 06/28/25 12:30>
*Pulse Oximetry
SaO2: 86
Oxygen Mode of Delivery: Room air
Patient hypoxic: no
*EKG
Interpreted by ED Provider?: Yes
<Shantanu Slade DO - Last Filed: 06/28/25 15:32>
*Critical Care Note
Total Time (30-74mins, 75-104mins- exclusive of procedures): Not Applicable
<Shantanu Slade DO - Last Filed: 06/28/25 15:32>
Update Note
Update Note:
I evaluated the patient at bedside. The patient has room air sats now of 92 to 93% on room air with a good waveform. She has no new shortness of breath (reports some ongoing shortness of breath for many months). She will continue Eliquis for
known DVT. We attempted V/Q study however the patient was unable to tolerate due to severe back pain. I did give her her usual dose of Vicodin prior to discharge. Considered CTA however the patient already has renal insufficiency with a GFR of
less than 30 and family agrees to hold off on this study.
ED Attending Note
<Prince Aviles MD - Last Filed: 06/28/25 12:30>
-
Portions of this chart may have been created with voice recognition software.� Occasional wrong word or��sound alike� substitutions may have occurred due to the inherent limitations of voice recognition software.
Discharge Plan
Departure
Patient Disposition: Home (Routine Discharge)
Date of Disposition: 06/28/25
Time of Disposition: 15:29
Patient with high blood pressure during this ER visit?: Yes
Discharge Problem:
Chest pain
Instructions: Chest Pain PCP Follow Up, BLOOD PRESSURE
Prescriptions:
No Action
therapeutic multivitamin Tablet
1 tab PO DAILY
omeprazole 40 mg Capsule,Delayed Release(Dr/Ec)
40 mg PO DAILY
aspirin 81 mg Tablet,Delayed Release (Dr/Ec)
81 mg PO DAILY
sertraline 50 mg Tablet
50 mg PO DAILY
furosemide [Lasix] 40 mg Tablet
40 mg PO DAILY
atorvastatin [Lipitor] 20 mg Tablet
20 mg PO HS
hydrocodone-acetaminophen 10-325 mg Tablet
1 tab PO QID
gabapentin 800 mg Tablet
800 mg PO BID
ibuprofen [Advil] 200 mg Tablet
400 mg PO DAILYPRN PRN (Reason: mild pain)
losartan 100 mg Tablet
100 mg PO DAILY
fluticasone propionate [Flonase] 50 mcg/actuation [place],Suspension
1 spray INTRANASAL DAILYPRN PRN (Reason: allergies)
Eliquis 5 mg Tablet
5 mg PO BID
nifedipine 30 mg tablet extended release
30 mg PO DAILY
Referrals:
Kel Da Silva MD [Family Provider, Internal Medicine]
Activity Restrictions/Additional Instructions:
The cause of your earlier chest discomfort is unclear. I recommend you follow-up your primary care doctor. Continue Eliquis. Return here if worse or other concerns or if you have increasing shortness of breath.
Interventions
Interventions:
*Risk Screen - Suicide Last Done: 06/28/25 10:54
*General Assessment Last Done: 06/28/25 10:54
*Neglect/Abuse Screening Last Done: 06/28/25 10:54
*ED COVID-19 Vaccine History Last Done: 06/28/25 10:54
ED- Cardiac Assessment Last Done: 06/28/25 11:50
Discharge Date and Time
Print Language: UKRAINIAN
[2025-06-28 11:32] LABS: Hematocrit 32.2 % (37.0-47.0); Hemoglobin 10.2 g/dL (12.0-16.0); Mean Corp Hgb Conc. 31.7 g/dL (33.0-37.0); Mean Corpuscular Volume 88.5 fL (81.0-99.0); Nucleated Red Blood Cells % 0 %; Platelet Count 211 10^3/uL (130-400); Red Cell Dist. Width 14.7 % (11.5-14.5)
[2025-06-28 11:49] LABS: Blood Urea Nitrogen 59 mg/dl (7-17); Calcium 9.2 mg/dl (8.4-10.2); Carbon Dioxide 25 mmol/L (22-30); Chloride 107 mmol/L (98-107); Glucose 129 mg/dl (70-99); Sodium 140 mmol/L (135-145); eGFR 26.60
[2025-06-28 11:57] LABS: Troponin I < 0.012 ng/ml
[2025-06-28 12:09] VITALS: BP 137/55
[2025-06-28 13:10] VITALS: BP 145/42
[2025-06-28 14:00] VITALS: BP 114/49
[2025-06-28 14:56] LABS: Troponin I < 0.012 ng/ml
--- NOTE | 2025-06-28 15:12 | EDRN ---
Nuclear med just called. Pt due to her chronic back pain cannot tolerate scan and is returning to room. Attempting to contact ED .
--- NOTE | 2025-06-28 15:15 | EDRN ---
Dr. Aviles has left Dr. Slade will get TT about [facility] study.
--- NOTE | 2025-06-28 15:19 | EDRN ---
Dr. Slade came to me about this pt and informed pt unable to tolerate Nuc Med V/Q study. He is presently speaking to daughter.
[2025-06-28 15:26] VITALS: BP 158/59
[2025-06-28] MEDS: NORCO 5/325 2 TABLET PO (16:07)
--- NOTE | 2025-06-28 16:20 | EDRN ---
Pt not having any feeling of SOB and POX is now 93-97% on RA after Dr. Slade in to check pt. Pt per Dr. Slade is okay for discharge.
== END 2025-06-28 16:38 | disposition home or self-care (01) ==
LOC: EMR 10:39
PROVIDERS: Emergency Medicine; EMERGENCY PHYSICIAN Emergency Medicine; FAMILY PHYSICIAN Internal Medicine Geriatric Medicine
DX: R07.89 Other chest pain (principal); I25.10 Atherosclerotic heart disease of native coronary artery without angina pectoris; I12.9 Hypertensive chronic kidney disease with stage 1 through stage 4 chronic kidney disease, or unspecified chronic kidney disease; E11.22 Type 2 diabetes mellitus with diabetic chronic kidney disease; N18.9 Chronic kidney disease, unspecified; E78.00 Pure hypercholesterolemia, unspecified; Z79.01 Long term (current) use of anticoagulants; Z86.718 Personal history of other venous thrombosis and embolism; Z95.1 Presence of aortocoronary bypass graft
CPT/HCPCS: 99283; 71046; 80048; 83880; 84484; 85025; 93005

== ENCOUNTER 2025-08-01 22:39 | Inpatient (IN) | payer MEDICARE, SELFPAY ==
[2025-08-01] VITALS (11 sets, daily range): BP systolic 94–162; BP diastolic 46–97; BMI 33.6
[2025-08-01 18:27] LABS: Hematocrit 16.7 % (37.0-47.0); Hemoglobin 4.9 g/dL (12.0-16.0); Mean Corp Hgb Conc. 29.3 g/dL (33.0-37.0); Mean Corpuscular Volume 81.1 fL (81.0-99.0); Nucleated Red Blood Cells % 0 %; Platelet Count 233 10^3/uL (130-400); Red Cell Dist. Width 15.5 % (11.5-14.5)
[2025-08-01 18:41] LABS: ALT (SGPT) 14 U/L (0-35); AST (SGOT) 21 U/L (14-36); Albumin 3.9 g/dl (3.5-5.0); Alkaline Phosphatase 67 U/L (38-126); Blood Urea Nitrogen 47 mg/dl (7-17); Calcium 8.5 mg/dl (8.4-10.2); Carbon Dioxide 22 mmol/L (22-30); Chloride 106 mmol/L (98-107); Glucose 125 mg/dl (70-99); Potassium 4.7 mmol/L (3.5-5.1); Sodium 137 mmol/L (135-145); Total Protein 6.2 g/dl (6.3-8.2); eGFR 20.91
--- NOTE | 2025-08-01 19:27 | ED.GENMED ---
History of Present Illness
General
Chief Complaint: Abnormal Lab Value
Time Seen by Provider: 08/01/25 18:56
Nursing documentation reviewed up to this point in time: agreed with
History of Present Illness
History of Present Illness:
89-year-old female brought to the ER by family for evaluation of low hemoglobin found on outpatient labs. Patient states that she had 1 episode of bright red blood in her stool several weeks ago. She denies any other change in her bowel habits.
She has been using oral iron given her chronic anemia. She does have a significant prior medical history including chronic kidney disease, aortic stenosis, poor mobility. Patient reports that she has chest pain and shortness of breath with any
exertion. She is on long-term anticoagulation with Eliquis due to previous blood clot. She is also on Lasix daily.
Past History
Past History
ED Past Medical History: HTN, Hypercholesterolemia, NIDDM, Psychiatric and Other (Neuropathy)
ED Past Surgical History: Orthopedic
Review of Systems
Review of Systems
Allergies reviewed?: Yes
Phy Exam
Physical Exam
Physical Exam:
Patient is awake, alert, pale, elderly, appears in no acute distress, head is NCAT, PERRL, EOMI mucous membranes moist, conjunctiva pale, heart regular rate and rhythm with 2 out of 6 systolic ejection murmur at the left sternal border, or ectopy,
lungs are clear to auscultation without wheezes rales or rhonchi, no JVD, abdomen is soft and nontender on palpation, rectal exam performed with nurse present at bedside, soft brown stool present in the vault which is trace heme positive, control
positive, extremities with 2+ edema symmetric, GCS is 15
Course
Orders/Labs/Results
Orders:
Orders
08/01/25 17:55
Electrocardiogram (*1) Urgent
Reason for Study: Other
Other Reason for Exam: low HbG
EKG- Treatment ONCE
08/01/25 17:56
Type+Screen Urgent
Complete Blood Count/With Diff Urgent
Comprehensive Metabolic Panel Urgent
08/01/25 19:25
* Blood Bank Products Urgent
Dr's Orders: transfuse over 4 hours
Blood Bank Products: *Packed RBC Leuko(PRBC's)
Quantity: 2
Transfuse Today: Yes
Reason: Anemia
CR Chest - 2 Views Urgent
Comment:
Reason For Exam: dyspnea
08/01/25 19:27
Electrocardiogram (*1) Urgent
Reason for Study: Shortness of Breath
EKG- Treatment ONCE
08/01/25 19:45
Troponin I Urgent
Abnormal Lab Results
08/01/25 08/01/25
17:56 19:45
RBC 2.06 L 10^6/uL
(4.20-5.40)
Hgb 4.9 L* g/dL
(12.0-16.0)
Hct 16.7 L* %
(37.0-47.0)
MCH 23.8 L pg
(27.0-31.0)
MCHC 29.3 L g/dL
(33.0-37.0)
RDW 15.5 H %
(11.5-14.5)
MPV 11.0 H fL
(7.4-10.4)
Absolute Monos (auto) 0.8 H 10^3/uL
(0.1-0.6)
Monocytes % 9.6 H %
(1.7-9.3)
BUN 47 H mg/dl
(7-17)
Creatinine 2.2 H mg/dL
(0.6-1.0)
Glucose 125 H mg/dl
(70-99)
Troponin I 0.053 H* ng/ml
Total Protein 6.2 L g/dl
(6.3-8.2)
Crossmatch IS Only See Detail
08/01/25 17:56
08/01/25 17:56
Hemoglobin 4.9, creatinine 2.2 similar to prior
Vital Signs
Initial and Last Documented VS:
Initial Vital Signs
Temp Pulse Resp BP Pulse Ox
98.5 F 81 18 116/54 94
08/01/25 17:52 08/01/25 17:52 08/01/25 17:52 08/01/25 17:52 08/01/25 17:52
Last Documented Vital Signs
Temp Pulse Resp BP Pulse Ox
98.5 F 81 18 116/54 94
08/01/25 17:52 08/01/25 17:52 08/01/25 17:52 08/01/25 17:52 08/01/25 19:29
MDM/Problems Addressed
Differential Diagnosis Includes:
Differential diagnosis to consider but not limited to ACS, symptomatic anemia, GI bleeding, along with other etiologies considered
Chronic conditions affecting care:
Chronic anemia, chronic kidney disease, aortic stenosis, obesity, advanced age, DVT
*Pulse Oximetry
SaO2: 94
Oxygen Mode of Delivery: Room air
Patient hypoxic: no
*Critical Care Note
Total Time (30-74mins, 75-104mins- exclusive of procedures): Critical care statement: (A total of 30 minutes of critical care time was provided for this patient. This includes management of unstable vital signs, evaluation of the patient at
bedside, reviewing the patient's pertinent medical records, discussion with consultants, review of old EKGs and review of)
Update Note
Update Note:
Blood consent obtained. 2 units packed red cells ordered. Patient and feeling members present at bedside agree with plan for admission for further evaluation and further care.
Full patient presentation reviewed with the hospitalist who accepts patient for admission for further care.
ED Attending Note
-
Portions of this chart may have been created with voice recognition software.� Occasional wrong word or��sound alike� substitutions may have occurred due to the inherent limitations of voice recognition software.
Discharge Plan
Departure
Prescriptions:
No Action
therapeutic multivitamin Tablet
1 tab PO DAILY
omeprazole 40 mg Capsule,Delayed Release(Dr/Ec)
40 mg PO DAILY
aspirin 81 mg Tablet,Delayed Release (Dr/Ec)
81 mg PO DAILY
sertraline 50 mg Tablet
50 mg PO DAILY
furosemide [Lasix] 40 mg Tablet
40 mg PO DAILY
atorvastatin [Lipitor] 20 mg Tablet
20 mg PO HS
hydrocodone-acetaminophen 10-325 mg Tablet
1 tab PO QID
gabapentin 800 mg Tablet
800 mg PO BID
ibuprofen [Advil] 200 mg Tablet
400 mg PO DAILYPRN PRN (Reason: mild pain)
losartan 100 mg Tablet
100 mg PO DAILY
fluticasone propionate [Flonase] 50 mcg/actuation [place],Suspension
1 spray INTRANASAL DAILYPRN PRN (Reason: allergies)
Eliquis 5 mg Tablet
5 mg PO BID
nifedipine 30 mg tablet extended release
30 mg PO DAILY
Interventions
Interventions:
*Risk Screen - Suicide Last Done: 08/01/25 17:52
*General Assessment Last Done: 08/01/25 17:52
*Neglect/Abuse Screening Last Done: 08/01/25 17:52
Discharge Date and Time
Print Language: [place] ISLAND[place]
[2025-08-01 20:21] LABS: Troponin I 0.053 ng/ml
--- NOTE | 2025-08-01 22:21 | HPS.HSE ---
Family Physician
-
Family Physician: Kel Da Silva
Chief Complaint
-
Weakness, Abnormal Lab
History of Present Illness
Patient is an 89y F with PMH significant for ASCVD, aortic stenosis, CHF and CKD who presents to ED for evaluation of severe anemia and fatigue. Patient was diagnosed with LLE DVT on 06/07/25. She was started on Eliquis at that time (10mg BID x
7 days then 5mg BID since). Patient states that she has felt very tired. She notes SOB with minimal activity. No chest pain. No cough, fevers / chills, etc.
Patient notes that she had a single episode of BRBPR about one week ago or so. She reports a large amount of blood in the toilet at that time. She has had BM since then with no evidence of blood. She is not certain whether her stools have been
darker in color. She denies any abdominal pain, N/V, diarrhea, etc. No other noted sources of bleeding including epistaxis, hemoptysis, etc.
Patient had outpatient labs done a few days ago and was called today and informed that her Hgb was very low and she should presented to the ED for evaluation.
In the ED her Hgb was 4.9 g/dL. She was seen in the ED about one month ago for chest pain / shortness of breath (unremarkable evaluation at that time) and Hgb was 10.2.
Medical History
Past Medical History
Past Medical History: Reports Other
Additional Past Medical History:
Aortic Stenosis
Chronic HFpEF
Hypertension
Osteoarthritis
Chronic Pain Syndrome
Chronic Opioid Dependence
Neuropathy
Coronary artery disease
Anxiety / Depression
GERD
CKD IV
Diabetes mellitus - diet-controlled
LLE DVT (06/07/25)
DDD
Past Surgical History: Reports Other
Additional Past Surgical History:
CABG
Left Hip ORIF
Right THADDEUS
Lumbar spinal fusion and decompression
Social History
Tobacco: Non-smoker
Alcohol: None
Drug: None
Family History
Family History: Not pertinent
Allergies / Home Medications
Allergies reflects when Allergies were last updated in [facility].
Home Medications with original date entered in [facility]
Allergy/Medication List:
Allergies
Allergy/AdvReac Type Severity Reaction Status Date / Time
No Known Allergies Allergy Verified 08/01/25 17:52
Home Medications
aspirin 81 mg tablet,delayed release 81 mg PO DAILY Blood Clot Prevention/Tx 02/17/24
omeprazole 40 mg capsule,delayed release 40 mg PO DAILY Gastrointestinal Issue 02/17/24
sertraline 50 mg tablet 50 mg PO DAILY Depression 02/17/24
therapeutic multivitamin 1 tab PO DAILY Supplement 02/17/24
apixaban 5 mg tablet (Eliquis) 5 mg PO BID 06/28/25
atorvastatin 20 mg tablet (Lipitor) 20 mg PO HS 06/28/25
fluticasone propionate 50 mcg/actuation nasal spray,suspension 1 spray intranasal DAILYPRN PRN allergies 06/28/25
furosemide 40 mg tablet (Lasix) 40 mg PO DAILY 06/28/25
gabapentin 800 mg tablet 800 mg PO BID 06/28/25
hydrocodone 10 mg-acetaminophen 325 mg tablet 1 tab PO QID 06/28/25
ibuprofen 200 mg tablet (Advil) 400 mg PO DAILYPRN PRN mild pain 06/28/25
losartan 100 mg tablet 100 mg PO DAILY 06/28/25
nifedipine 30 mg tablet,extended release 30 mg PO DAILY 06/28/25
ferrous sulfate 325 mg (65 mg iron) tablet 325 mg PO DAILY 08/01/25
Review of Systems
-
History Source: Patient
A 12 point ROS was completed and negative except as noted: Yes
Constitutional: Reports Fatigue; Denies Fever or Chills
Respiratory: Reports Trouble Breathing; Denies Cough
Cardiac: Denies Chest Pain or Palpitations
Abdomen/GI: Reports Bloody Stools; Denies Abdominal Pain, Nausea, Vomiting or Diarrhea
: Denies Dysuria or Frequency
Musculoskeletal: Denies Joint Pain or Edema
Neurological: Denies Dizzy or Headache
Psych: Denies Depression or Anxiety
Physical Exam
Vital Signs
Vital Signs
Temp Pulse Resp BP Pulse Ox
98.7 F 87 14 153/97 96
08/01/25 22:04 08/01/25 22:04 08/01/25 22:04 08/01/25 22:04 08/01/25 22:04
Physical Exam
General: Other (89y F pale-appearing female in no acute distress.)
HEENT: Moist mucous membranes and PERRLA
Respiratory: Other (Few bibasilar rales.)
Cardiac: S1/S2, Regular Rhythm and Murmur (III/ LO)
GI: Soft, Non Tender, Non Distended and Normal Bowel Sounds
Musculoskeletal: No Clubbing, No Cyanosis and Other (1+ ankle edema b/l.)
Neuro: AO x 3
Laboratory Results
-
08/01/25 17:56
08/01/25 17:56
Laboratory Results
Total Bilirubin 0.2 mg/dl (0.2-1.3) 08/01/25 17:56
AST 21 U/L (14-36) 08/01/25 17:56
ALT 14 U/L (0-35) 08/01/25 17:56
Alkaline Phosphatase 67 U/L (38-126) 08/01/25 17:56
Troponin I 0.053 ng/ml H* 08/01/25 19:45
Impression/Plan
-
A/P: Patient is an 89y F with PMH significant for aortic stenosis, CHF and CKD who presents to ED for evaluation of anemia and fatigue.
Severe Symptomatic Anemia
Heme Positive Stools
Eliquis Coagulopathy
- Admit for further evaluation and treatment.
- Hold Eliquis and ASA.
- IV PPI BID.
- Transfusing 2 units PRBCs to start.
- Follow H&H and provide additional blood products as needed.
- GI consult for further evaluation and possible endoscopic examination.
MUNA on CKD IV
- SCr = 2.2 compared to recent baseline of 1.8.
- Likely pre-renal due to anemia / decreased perfusion.
- Follow for improvement with volume / blood replacement.
ASCVD
Non-Ischemic Myocardial Injury
- No chest pain. Exertional dyspnea likely due to anemia.
- Mild troponin elevation. Follow to peak.
Aortic Stenosis
Chronic HFpEF
- Continue Lasix 40mg daily for now.
- Follow I/Os, daily weights, etc.
- May require additional diuresis following blood products.
Diet-Controlled DM-II
- Stable. Follow glucose and cover with SSI as needed.
- Update A1C.
Peripheral Neuropathy
- Stable. Continue gabapentin.
LLE DVT
DVT Prophylaxis
- Holding Eliquis given acute blood loss / bleeding as noted above.
- No SCDs given known LLE DVT.
- Evaluate bleeding as noted above and resume Eliquis when appropriate.
Code Status: DNR
[2025-08-02] VITALS (14 sets, daily range): BP systolic 103–188; BP diastolic 43–85; BMI 33.4
[2025-08-02 01:15] LABS: Glucose - Point of Care 137 mg/dl (70-99)
[2025-08-02] MEDS: BenGay-Like 1 APPLIC TOPICAL ×4 (02:47→21:02)
[2025-08-02 04:32] LABS: APTT 33.9 Sec (23.4-35.0)
[2025-08-02 04:39] LABS: Blood Urea Nitrogen 44 mg/dl (7-17); Calcium 8.5 mg/dl (8.4-10.2); Carbon Dioxide 21 mmol/L (22-30); Chloride 109 mmol/L (98-107); Estimated Creatinine Clearance 18 ml/min; Glucose 114 mg/dl (70-99); Iron 89 ug/dl (37-170); Potassium 4.6 mmol/L (3.5-5.1); Sodium 138 mmol/L (135-145); eGFR 23.44
[2025-08-02 04:53] LABS: Total Iron Binding Capacity 396 ug/dl (265-497); Troponin I 0.080 ng/ml
[2025-08-02 05:10] LABS: Hematocrit 22.2 % (37.0-47.0); Hemoglobin 7.0 g/dL (12.0-16.0); Mean Corp Hgb Conc. 31.5 g/dL (33.0-37.0); Mean Corpuscular Volume 81.6 fL (81.0-99.0); Platelet Count 198 10^3/uL (130-400); Red Cell Dist. Width 14.9 % (11.5-14.5)
[2025-08-02 05:13] LABS: Ferritin 8.2 ng/ml (11.1-264.0)
[2025-08-02 05:30] LABS: Glucose - Point of Care 121 mg/dl (70-99)
--- NOTE | 2025-08-02 05:54 | W.PN.UPDATE ---
Update Note
Progress Note Update
hgb 7.0, will order one unit of PRBC's.
Trop noted, will peak. asymptomatic, stable VS at present.
--- NOTE | 2025-08-02 07:15 | W.PN.HOSP.TC ---
Today's Communication/Plan
-
Await lower extremity ultrasound
Monitor Hgb, goal is to maintain Hgb 8 given cardiac disease
Hold all blood thinner
Monitor on telemetry
Assessment / Plan
Assessment / Plan
Physical Exam
General: Not in acute distress
HEENT: Normocephalic. Moist mucous membranes
Respiratory: Faint crackles bilaterally
Cardiac: S1/S2, Regular Rhythm
GI: Soft, Non Tender, Non Distended and Normal Bowel Sounds
Musculoskeletal: No Cyanosis and Other (1+ ankle edema b/l.)
Neuro: AO x 3
Assessment/Plan
89 y/o female with past medical history significant for hypertension, CAD, aortic stenosis, CHF and CKD who presents to ED for evaluation of severe anemia and fatigue. Patient was diagnosed with LLE DVT on 06/07/25. She was started on Eliquis at
that time (10mg BID x 7 days then 5mg BID since). Patient states that she has felt very tired. She notes SOB with minimal activity. No chest pain. No cough, fevers / chills, etc.
Patient notes that she had a single episode of BRBPR about one week ago or so. She reports a large amount of blood in the toilet at that time. She has had BM since then with no evidence of blood. She is not certain whether her stools have been
darker in color. She denies any abdominal pain, N/V, diarrhea, etc. No other noted sources of bleeding including epistaxis, hemoptysis, etc.
Patient had outpatient labs done a few days ago and was called today and informed that her Hgb was very low and she should presented to the ED for evaluation.
In the ED her Hgb was 4.9 g/dL. She was seen in the ED about one month ago for chest pain / shortness of breath (unremarkable evaluation at that time) and Hgb was 10.2.
Severe Symptomatic Anemia
Bloody Stools about 1 week prior to presentation
Heme Positive Stools
Eliquis Coagulopathy
- Continue to monitor closely on telemetry; low threshold for transfer to IMU
- Hold Eliquis and ASA.
- IV PPI BID.
- Patient received a total of 3 units of PRBCs so far this hospitalization -- initial Hgb 4.9, now improved to 9
- Follow H&H and provide additional blood products as needed.
- Maintain Hgb>8 given history of CAD
- GI consult for further evaluation and possible endoscopic examination.
- I communicated with sack cleaning hand Dr. Katlyn Guerrero, and she said that patient declined hemodialysis and also any EGD/colonoscopy. Patient is open to have LE Doppler to r/o DVT then stopping eliquis alf. If DVT is
present on lower extremity ultrasound, can get IVC filter. Follow-up with roentgenologist for outpatient serial labs and products as needed
History of GERD
MUNA on CKD IV
- SCr = 2.2 compared to recent baseline of 1.7 to 1.8.
- Likely pre-renal due to anemia / decreased perfusion.
- Follow for improvement with volume / blood replacement.
CAD
Non-Ischemic Myocardial Injury
- No chest pain. Exertional dyspnea likely due to anemia.
- Mild troponin elevation -- plateaued
Aortic Stenosis
Chronic HFpEF
- Continue Lasix 40mg daily for now.
- Follow I/Os, daily weights, etc.
- May require additional diuresis following blood products.
Hypertension
Diet-Controlled DM-II
- Stable. Follow glucose and cover with SSI as needed.
- Update A1C was ordered on admission, although may not be reliable in the setting of GI bleed
Peripheral Neuropathy
- Stable. Continue gabapentin.
Lumbar radiculopathy with chronic pain and opiate dependence
- History of spine surgery
- Monitor for constipation given narcotic pain regimen
LLE DVT
DVT Prophylaxis
- Holding Eliquis given acute blood loss / bleeding as noted above.
- No SCDs given known LLE DVT.
- Evaluate bleeding as noted above and resume Eliquis when appropriate.
- Check ultrasound to assess current DVT clot burden
Code Status: DNR
Anticipated Discharge: 24 - 48 hours
Subjective/Interval History
-
Date of Service: August 02, 2025
Patient was seen and examined. She denied any new symptoms or complaints.
Objective Data
-
Labs:
Laboratory Results
08/02/25 08/02/25 08/02/25
00:54 04:02 10:00
WBC 8.6
Hgb Cancelled 7.0 L D Pending
Hct Cancelled 22.2 L Pending
Plt Count 198
APTT 33.9
Sodium 138
Potassium 4.6
Chloride 109 H
Carbon Dioxide 21 L
BUN 44 H
Creatinine 2.0 H
Glucose 114 H
Calcium 8.5
08/02/25 08/02/25 08/02/25
12:54 16:00 18:54
WBC
Hgb Cancelled Pending Cancelled
Hct Cancelled Pending Cancelled
Plt Count
APTT
Sodium
Potassium
Chloride
Carbon Dioxide
BUN
Creatinine
Glucose
Calcium
08/02/25
22:00
WBC
Hgb Pending
Hct Pending
Plt Count
APTT
Sodium
Potassium
Chloride
Carbon Dioxide
BUN
Creatinine
Glucose
Calcium
Vital Signs:
Vital Signs
Temp Pulse Resp BP Pulse Ox
97.9 F 91 18 152/73 95
08/02/25 03:23 08/02/25 03:23 08/02/25 03:23 08/02/25 03:23 08/02/25 03:23
I&O
08/01/25 08/02/25 08/03/25
06:59 06:59 06:59
Intake Total 860 / 860
Balance 860 / 860
[2025-08-02] MEDS: PROCARDIA XL (EXTENDED RELEASE) PO (08:52)
[2025-08-02] MEDS: NSS (PRESERVATIVE FREE) 10 ML IV ×2 (08:53→21:02)
[2025-08-02] MEDS: NEURONTIN 800 MG PO ×2 (08:55→21:02)
[2025-08-02] MEDS: PROTONIX IV 40 MG IV ×2 (08:55→21:02)
[2025-08-02] MEDS: ZOLOFT 50 MG PO (08:55)
--- NOTE | 2025-08-02 09:01 | CON.GI ---
Addendum entered and electronically signed by Katlyn Madsen Do, MD 08/02/25 16:58:
I saw and evaluated the patient. I reviewed the resident�s note and agree with findings and plan as documented in the resident�s note.
Martha is an 89yo W lives alone with h/o and CKD who presents for symptomatic iron def anemia. Denies overt blood in stools. Similar issues 2 yrs ago that resolved on it's own. Recently diagnosed with DVT in May in setting of less mobility.
Placed on eliquis. Vitals stable exam kyphosis, NTTP, NABS. Labs reviewed
Impression
- Symptomatic iron def anemia
ddx includes maligancy ectasia or ulcer
- Anticoagulation
- H/o DVT
-
- CKD
Recommendations
- She declines all EGD/colon and HD
- She is open to LE dopplers to see if DVT exists if not to stop eliquis skilled nursing. If present consider IVC filter
- She prefers periodic transfusions if possible referred to OP hematology
- Above d/w her son who is also in agreement
- C/w PPI
At this point no further recs will sign off please call for ?
Original Note:
Consultation
-
Date/Time Consultation Requested: 08/02/2025; 00:54
Date/Time Consultation Performed: 08/02/2025; 10:30
Requesting Provider: Jc Rand DO
Performing Provider: Katlyn Guerrero MD; Cristian Floyd MD
Reason for Consultation: Symptomatic anemia, GI bleed
Medical History
Chief Complaint / HPI
Chief Complaint: low hgb on outpatient labs
History of Present Illness:
89 yo F PMH ASCVD, aortic stenosis, HFpEF, CKD p/w severe anemia, fatigue who comes in after outpatient labs showed low Hgb
Endorses fatigue, weakness for the past few days
She experienced blood per stool few weeks ago, but hasn't looked at her stool more recently. denies any changes in bowel habits
she had a DVT in May and has been on apixaban.
son in law is present at bedside providing additional history. Per son in law, patient is fatigued for some time but noted that she became significantly more fatigued over the past few weeks.
Past Medical History
Past Medical History: Other (per HPI)
Past Surgical History: Other (per HPI)
Social History
Tobacco: Non-Smoker
Alcohol: Occasional
Drug: None
Living: Assisted Living (aides visit for 18 hr/day)
Employment: Retired (worked at a [employer])
Allergies / Home Medications
Allergy/AdvReac Type Severity Reaction Status Date / Time
No Known Allergies Allergy Verified 08/01/25 17:52
�Medication �Instructions �Recorded
aspirin 81 mg tablet,delayed 81 mg PO DAILY Blood Clot 02/17/24
release Prevention/Tx
omeprazole 40 mg capsule,delayed 40 mg PO DAILY Gastrointestinal 02/17/24
release Issue
sertraline 50 mg tablet 50 mg PO DAILY Depression 02/17/24
therapeutic multivitamin 1 tab PO DAILY Supplement 02/17/24
apixaban 5 mg tablet (Eliquis) 5 mg PO BID Blood Clot 06/28/25
Prevention/Tx
atorvastatin 20 mg tablet (Lipitor) 20 mg PO HS High Cholesterol 06/28/25
fluticasone propionate 50 1 spray intranasal DAILYPRN PRN 06/28/25
mcg/actuation nasal allergies
spray,suspension
furosemide 40 mg tablet (Lasix) 40 mg PO DAILY Fluid 06/28/25
Retention/Swelling
gabapentin 800 mg tablet 800 mg PO BID Neurological 06/28/25
Condition
hydrocodone 10 mg-acetaminophen 1 tab PO QID Pain 06/28/25
325 mg tablet
ibuprofen 200 mg tablet (Advil) 400 mg PO DAILYPRN PRN mild pain 06/28/25
losartan 100 mg tablet 100 mg PO DAILY Blood Pressure 06/28/25
nifedipine 30 mg tablet,extended 30 mg PO DAILY Blood Pressure 06/28/25
release
ferrous sulfate 325 mg (65 mg 325 mg PO DAILY Supplement 08/01/25
iron) tablet
Review of Systems
-
History Source: Patient and Family
Constitutional: Reports Fatigue
EENT: Reports No Symptoms
Respiratory: Reports No Symptoms
Cardiac: Reports No Symptoms
Abdomen/GI: Reports No Symptoms
Vital Signs
Temp Pulse Resp BP Pulse Ox
97.8 F 90 16 103/43 97
08/02/25 07:30 08/02/25 07:30 08/02/25 07:30 08/02/25 08:52 08/02/25 07:30
Physical Exam
Exam
General: No Apparent Distress
HEENT: Normocephalic
Respiratory: Clear
Cardiac: Murmur (crescendo-decrescendo murmur loudest near left parasternal)
GI: Soft, Non Tender and Non Distended
Rectal: Other (trace heme positive per ED documentation)
Musculoskeletal: No Edema
Skin: Warm
Neuro: AO x 3
Psych: Calm
Results
WBC 8.6 10^3/uL (4.8-10.8) 08/02/25 04:02
Hgb Cancelled 08/02/25 18:54
Hct Cancelled 08/02/25 18:54
MCV 81.6 fL (81.0-99.0) 08/02/25 04:02
Plt Count 198 10^3/uL (130-400) 08/02/25 04:02
Absolute Neuts (auto) 4.5 10^3/uL (1.4-6.5) 08/01/25 17:56
APTT 33.9 Sec (23.4-35.0) 08/02/25 04:02
Sodium 138 mmol/L (135-145) 08/02/25 04:02
Potassium 4.6 mmol/L (3.5-5.1) 08/02/25 04:02
Chloride 109 mmol/L (98-107) H 08/02/25 04:02
Carbon Dioxide 21 mmol/L (22-30) L 08/02/25 04:02
BUN 44 mg/dl (7-17) H 08/02/25 04:02
Creatinine 2.0 mg/dL (0.6-1.0) H 08/02/25 04:02
Calcium 8.5 mg/dl (8.4-10.2) 08/02/25 04:02
Total Bilirubin 0.2 mg/dl (0.2-1.3) 08/01/25 17:56
AST 21 U/L (14-36) 08/01/25 17:56
ALT 14 U/L (0-35) 08/01/25 17:56
Alkaline Phosphatase 67 U/L (38-126) 08/01/25 17:56
Diagnostic Image Results:
CXR 08/01/2025
IMPRESSION:
No acute disease of the chest.
Mild cardiomegaly. New
Assessment / Plan
-
In summary, 89 yo F PMH ASCVD, aortic stenosis, HFpEF, CKD p/w severe anemia, fatigue who comes in after outpatient labs showed low Hgb most concerning for a GI bleed
After further discussion with Dr. Guerrero, the patient declined EGD/colonoscopy. She is open to have a lower extremity doppler to rule out a DVT, and if there is a DVT, can consider IVC filter given the likely GI bleed.
# GI Bleed
- the ddx for GI bleed is broad and can include malignancy, angiectasias, ulcer, diverticular bleed among others.
- she has a history of aortic stenosis with can point towards angiectasias
- To evaluate malignancy, endoscopic procedures are warranted, however patient declined.
- Given that patient declined EGD/colonoscopy, consider management of symptomatic anemia with transfusions, likely hematology follow-up needed.
-
-
Thank you for consultation and allowing me to participate in the patient's care. Please call the construction controller GI physician during the after hours with any questions or concerns.
[2025-08-02] MEDS: NORCO 5/325 PO (09:06)
[2025-08-02 09:40] LABS: Glycohemoglobin (HgbA1c) 5.8 % (4.0-5.6)
[2025-08-02 11:51] LABS: Glucose - Point of Care 121 mg/dl (70-99)
--- NOTE | 2025-08-02 12:43 | CM ---
Alert awake patient who lives alone at [facility] independent living in driving and all ADLs. She uses walker .Her patricia is present. Offered VN she unsure . She is receiving blood transfusion at this time. Requested PT OT eval from when
appropriate.
[facility]N HX /[facility] hx.
Pharmacy [facility] at [facility]
PCP Dr Da Silva
PLAN Will need PT OT eval for dc planning
[2025-08-02] MEDS: NORCO 5/325 2 TABLET PO ×3 (13:09→21:02)
[2025-08-02 14:51] LABS: Hematocrit 28.0 % (37.0-47.0); Hemoglobin 9.0 g/dL (12.0-16.0)
[2025-08-02 15:14] LABS: Troponin I 0.072 ng/ml
[2025-08-02 15:17] LABS: Albumin 3.6 g/dl (3.5-5.0)
[2025-08-02 16:51] LABS: Glucose - Point of Care 164 mg/dl (70-99)
[2025-08-02] MEDS: NOVOLOG FLEXPEN-LOW RESISTANCE SC (17:56)
[2025-08-02 21:08] LABS: Hematocrit 28.9 % (37.0-47.0); Hemoglobin 9.5 g/dL (12.0-16.0)
[2025-08-02 21:15] LABS: Glucose - Point of Care 112 mg/dl (70-99)
[2025-08-02 21:33] LABS: Troponin I 0.066 ng/ml
[2025-08-03 02:20] LABS: Hematocrit 27.2 % (37.0-47.0); Hemoglobin 8.8 g/dL (12.0-16.0)
[2025-08-03 03:53] VITALS: BP 168/71
[2025-08-03 06:00] VITALS: BMI 33.1
[2025-08-03 07:49] VITALS: BP 130/82
[2025-08-03] MEDS: BenGay-Like 1 APPLIC TOPICAL (07:50)
[2025-08-03] MEDS: PROTONIX IV 40 MG IV ×2 (07:51→19:26)
[2025-08-03] MEDS: NSS (PRESERVATIVE FREE) 10 ML IV ×2 (07:51→19:26)
[2025-08-03] MEDS: PROCARDIA XL (EXTENDED RELEASE) 30 MG PO (07:51)
[2025-08-03] MEDS: ZOLOFT 50 MG PO (07:52)
[2025-08-03] MEDS: NORCO 5/325 2 TABLET PO ×4 (07:52→21:41)
[2025-08-03] MEDS: NEURONTIN 800 MG PO ×2 (07:52→19:26)
[2025-08-03 08:03] LABS: Glucose - Point of Care 110 mg/dl (70-99)
[2025-08-03] MEDS: NOVOLOG FLEXPEN-LOW RESISTANCE SC (08:06)
[2025-08-03 08:11] LABS: Hematocrit 30.7 % (37.0-47.0); Hemoglobin 9.8 g/dL (12.0-16.0)
[2025-08-03 08:14] LABS: Hematocrit 30.7 % (37.0-47.0); Hemoglobin 9.7 g/dL (12.0-16.0); Mean Corp Hgb Conc. 31.6 g/dL (33.0-37.0); Mean Corpuscular Volume 85.5 fL (81.0-99.0); Platelet Count 227 10^3/uL (130-400); Red Cell Dist. Width 15.0 % (11.5-14.5)
[2025-08-03 08:16] LABS: Blood Urea Nitrogen 38 mg/dl (7-17); Calcium 8.6 mg/dl (8.4-10.2); Carbon Dioxide 24 mmol/L (22-30); Chloride 109 mmol/L (98-107); Estimated Creatinine Clearance 17 ml/min; Glucose 98 mg/dl (70-99); Magnesium 2.2 mg/dl (1.6-2.3); Potassium 4.7 mmol/L (3.5-5.1); Sodium 140 mmol/L (135-145); eGFR 23.44
--- NOTE | 2025-08-03 08:31 | W.PN.HOSP.TC ---
Today's Communication/Plan
-
IV Lasix
Follow-up ultrasound results
Please see below
Assessment / Plan
Assessment / Plan
Physical Exam
General: Not in acute distress
HEENT: Normocephalic. Moist mucous membranes
Respiratory: Faint crackles bilaterally
Cardiac: S1/S2, Regular Rhythm
GI: Soft, Non Tender, Non Distended and Normal Bowel Sounds
Musculoskeletal: No Cyanosis and Other (1+ ankle edema b/l.)
Neuro: AO x 3
Assessment/Plan
89 y/o female with past medical history significant for hypertension, CAD, aortic stenosis, CHF and CKD who presents to ED for evaluation of severe anemia and fatigue. Patient was diagnosed with LLE DVT on 06/07/25. She was started on Eliquis at
that time (10mg BID x 7 days then 5mg BID since). Patient states that she has felt very tired. She notes SOB with minimal activity. No chest pain. No cough, fevers / chills, etc.
Patient notes that she had a single episode of BRBPR about one week ago or so. She reports a large amount of blood in the toilet at that time. She has had BM since then with no evidence of blood. She is not certain whether her stools have been
darker in color. She denies any abdominal pain, N/V, diarrhea, etc. No other noted sources of bleeding including epistaxis, hemoptysis, etc.
Patient had outpatient labs done a few days ago and was called today and informed that her Hgb was very low and she should presented to the ED for evaluation.
In the ED her Hgb was 4.9 g/dL. She was seen in the ED about one month ago for chest pain / shortness of breath (unremarkable evaluation at that time) and Hgb was 10.2.
Severe Symptomatic Anemia
Bloody Stools about 1 week prior to presentation
Acute blood loss anemia
Heme Positive Stools
Eliquis Coagulopathy
- Continue to monitor closely on telemetry; low threshold for transfer to IMU
- Hold Eliquis and Aspirin 81 mg daily
- IV PPI BID.
- Patient received a total of 3 units of PRBCs so far this hospitalization -- initial Hgb 4.9, now improved to 9
- Follow H&H and provide additional blood products as needed.
- Maintain Hgb>8 given history of CAD
- GI consult for further evaluation and possible endoscopic examination.
- I communicated with marine diesel technician Dr. Katlyn Guerrero, and she said that patient declined hemodialysis and also any EGD/colonoscopy. Patient is open to have LE Doppler to r/o DVT then stopping eliquis shelter. If DVT is
present on lower extremity ultrasound, can get IVC filter. Follow-up with publicity consultant for outpatient serial labs and products as needed
- Appreciate Hematology input given this challenging scenario
History of GERD
MUNA on CKD IV
- SCr = 2.2-->2.0 compared to recent baseline of 1.7 to 1.8.
- Likely pre-renal due to anemia / decreased perfusion.
- Follow for improvement with volume / blood replacement.
CAD
Non-Ischemic Myocardial Injury
History of CABG
- No chest pain. Exertional dyspnea likely due to anemia.
- Mild troponin elevation -- plateaued -- appreciate cardiology
- Will discuss with GI and cardiology whether Aspirin 81 mg daily can safely be resumed
Aortic Stenosis
Acute on Chronic HFpEF -- likely in setting of blood transfusions
- IV Lasix given on 08/03/25
- Follow I/Os, daily weights, etc.
- Cardiology consultation appreciated
Hypertension
Diet-Controlled DM-II
- Stable. Follow glucose and cover with SSI as needed.
- Update A1C was ordered on admission, although may not be reliable in the setting of GI bleed
Peripheral Neuropathy
- Stable. Continue gabapentin.
Lumbar radiculopathy with chronic pain and opiate dependence
- History of spine surgery
- Monitor for constipation given narcotic pain regimen
LLE DVT
DVT Prophylaxis
- Holding Eliquis given acute blood loss / bleeding as noted above.
- No SCDs given known LLE DVT.
- Evaluate bleeding as noted above and resume Eliquis when appropriate.
- Checking ultrasound to assess current DVT clot burden
Code Status: DNR
Anticipated Discharge: 24 - 48 hours
Subjective/Interval History
-
Date of Service: August 03, 2025
Patient was seen and examined. She had 2 dark black stools yesterday. She denied any other new symptoms or complaints.
Objective Data
-
Labs:
Laboratory Results
08/02/25 08/03/25 08/03/25
21:00 02:15 06:31
WBC 8.9
Hgb 9.5 L 8.8 L 9.8 L
Hct 28.9 L 27.2 L
Plt Count
Sodium
Potassium
Chloride
Carbon Dioxide
BUN
Creatinine
Glucose
Calcium
08/03/25 08/03/25
06:31 06:31
WBC
Hgb 9.7 L
Hct 30.7 L 30.7 L
Plt Count 227
Sodium 140
Potassium 4.7
Chloride 109 H
Carbon Dioxide 24
BUN 38 H
Creatinine 2.0 H
Glucose 98
Calcium 8.6
Vital Signs:
Vital Signs
Temp Pulse Resp BP Pulse Ox
97.8 F 59 18 130/82 93
08/03/25 07:49 08/03/25 07:51 08/03/25 07:49 08/03/25 07:51 08/03/25 07:49
I&O
08/02/25 08/03/25 08/04/25
06:59 06:59 06:59
Intake Total 860 / 860 1210 / 1210
Balance 860 / 860 1210 / 1210
[2025-08-03] MEDS: LASIX 20 MG IV ×3 (09:08→17:29)
--- NOTE | 2025-08-03 09:37 | CM ---
Received blood transfusion yesterday.
Hgb improved.
US LE ordered.
Hematology consult ordered
Hold on PT eval at this time.
PLAN Will need PT OT for dc planning
--- NOTE | 2025-08-03 10:09 | PN.CDI ---
CDI
- -
CDI:
Physician Documentation Request
Admit Date: 08/01/25 22:39
Dear Doctor Araceli,
Patient admitted for GI bleed.
08/02 Hospitalist PN: 'Severe Symptomatic Anemia, Bloody Stools about 1 week prior to presentation, Heme Positive Stools'
Based on the above, could you clarify, in your progress note, which of the following is the most likely type of anemia you are evaluating, monitoring and/or treating?
Acute blood loss anemia
Acute blood loss anemia with baseline chronic anemia (Specify type)
Anemia of chronic disease - indicate if neoplastic disease, CKD or other
Chronic iron deficiency anemia due to blood loss
Vitamin B deficiency anemia - indicate3 etiology, such as intrinsic factor deficiency, malabsorption, transcobalamin II deficiency, dietary etc.
Folate deficiency anemia - indicate etiology, such as dietary, drug induced etc.
Protein deficiency anemia
Other
Unable to determine
Use of terms such as suspected, likely, concern for, or probable (associated with a specific diagnosis that is being evaluated, monitored, or treated as if it exists) are acceptable and can be coded in the inpatient setting, when documented at the
time of discharge.
Thank you,
Chanell You RN, BSN
CDI Specialist
Available via [employer] text
Please use your independent medical judgment in providing your response.
--- NOTE | 2025-08-03 10:54 | CON.ONC ---
Consultation
-
Date Consultation Requested: 08/03/25
Date Consultation Performed: 08/03/25
Requesting Provider: Dr. Charles
Performing Provider: Dr. Edwards; Dr. Cardenas
Reason for Consultation: IVF filter, anticoagulation
Impression
Impression
Patient is an 89-year-old female with PMH of LLE DVT on Eliquis and aortic stenosis who presented to [facility] with severe symptomatic anemia s/p 3U PRBCs, recent bleeding per rectum, and symptoms of LLE DVT. Heme-onc consulted for consideration of
anticoagulation and IVC filter placement in the setting of possible LLE DVT in the setting of active/recent GI bleed.
Hgb 9.7, improved from 4.9 on presentation s/p 3U PRBCs
Iron studies: Ferritin 8.2, iron 89, RDW 14.9-15.5. Suggestive of chronic iron deficiency.
Anticoagulation on hold
Patient denying GI interventions for source control of bleeding, necessitating consideration of IVC filter due to possible LE DVT and recent history of DVT
No current signs of active GI bleeding
Lower extremity ultrasound pending
D-dimer pending
Plan
Plan
#Severe symptomatic SIN
#Possible LLE DVT
Continue to hold anticoagulation in setting of suspected SIN 2/2 GI bleed
Lower extremity ultrasound, D-dimer pending
Consider temporary IVC filter placement if lower extremity DVT present and no source control of GI bleed (patient denying GI interventions)
Consider prophylactic anticoagulation if Hgb stable, no signs of bleeding, clinically stable
Monitor CBC, clinical status
Transfuse Hgb <8 due to cardiac history
Patient History
History of Present Illness
Patient with a recent history of LLE DVT (06/07/25) on Eliquis, CAD on aspirin, aortic stenosis, HTN, and CHF presented to the [facility] ED with severe anemia diagnosed on outpatient labs. On presentation to the ED, hemoglobin was 4.9, necessitating
transfusion of 3U PRBCs on 08/01 and 08/02. Hemoglobin 9.7 today. Patient has been having shortness of breath, lightheadedness, dizziness, and fatigue over the last couple weeks. Patient also had an episode of BRBPR during a bowel movement 1-2 weeks
ago. No dark or bloody stool noted since that single episode, though patient does not routinely check her stool. No other symptoms of bleeding, including hemoptysis or hematemesis. No clotting history prior to DVT in May. Patient reports swollen
LLE with mild pain with movement. Patient has been compliant with her anticoagulation, which she last took Thursday (08/01). Patient was seen by GI, but she denied endoscopy and colonoscopy for source control of bleeding.
Past-Medical/Surgical History
LLE DVT (06/07/2025), aortic stenosis, CAD, hypertension, CHF
Patient Medication
�Medication �Instructions �Recorded �Confirmed �Last Taken �Type
aspirin 81 mg tablet,delayed 81 mg PO DAILY Blood Clot 02/17/24 08/01/25 06/28/25 History
release Prevention/Tx
omeprazole 40 mg capsule,delayed 40 mg PO DAILY Gastrointestinal 02/17/24 08/01/25 06/28/25 History
release Issue
sertraline 50 mg tablet 50 mg PO DAILY Depression 02/17/24 08/01/25 06/28/25 History
therapeutic multivitamin 1 tab PO DAILY Supplement 02/17/24 08/01/25 06/28/25 History
apixaban 5 mg tablet (Eliquis) 5 mg PO BID Blood Clot 06/28/25 08/01/25 06/28/25 History
Prevention/Tx
atorvastatin 20 mg tablet (Lipitor) 20 mg PO HS High Cholesterol 06/28/25 08/01/25 06/27/25 History
fluticasone propionate 50 1 spray intranasal DAILYPRN PRN 06/28/25 08/01/25 Unknown History
mcg/actuation nasal allergies
spray,suspension
furosemide 40 mg tablet (Lasix) 40 mg PO DAILY Fluid 06/28/25 08/01/25 06/28/25 History
Retention/Swelling
gabapentin 800 mg tablet 800 mg PO BID Neurological 06/28/25 08/01/25 06/28/25 History
Condition
hydrocodone 10 mg-acetaminophen 1 tab PO QID Pain 06/28/25 08/01/25 06/28/25 History
325 mg tablet
ibuprofen 200 mg tablet (Advil) 400 mg PO DAILYPRN PRN mild pain 06/28/25 08/01/25 06/26/25 History
losartan 100 mg tablet 100 mg PO DAILY Blood Pressure 06/28/25 08/01/25 06/28/25 History
nifedipine 30 mg tablet,extended 30 mg PO DAILY Blood Pressure 06/28/25 08/01/25 06/28/25 History
release
ferrous sulfate 325 mg (65 mg 325 mg PO DAILY Supplement 08/01/25 08/01/25 Unknown History
iron) tablet
Active Medications
Generic Name Dose Route Start Last Admin
Trade Name Freq PRN Reason Stop Dose Admin
Hydrocodone Bitart/Acetaminophen 2 tablet 08/02/25 08:00 08/03/25 07:52
Hydrocodone 5 Mg/Acetaminophen 325 Mg Tablet PO 08/16/25 07:59 2 tablet
QID NATALIE Administration
Dextrose 12.5 grams 08/02/25 00:54
Dextrose 50% (0.5 Grams/Ml) 50 Ml Syringe IV 08/30/25 00:53
[id number] PRN
hypoglycemia
Protocol
Furosemide 40 mg 08/02/25 08:00 08/03/25 09:18
Furosemide 40 Mg Tablet PO 08/30/25 07:59 Not Given
On Hold: 08/03/25 08:32 DAILY NATALIE
Gabapentin 800 mg 08/02/25 08:00 08/03/25 07:52
Gabapentin 400 Mg Capsule PO 08/30/25 07:59 800 mg
BID NATALIE Administration
Glucagon 1 mg 08/02/25 00:54
Glucagon 1 Mg Vial IM 08/30/25 00:53
PRN PRN
hypoglycemia
Protocol
Insulin Aspart 0 units 08/02/25 18:00 08/03/25 08:06
Insulin Aspart Low Resistance 300 Units/3 Ml Pen.Injctr SC 08/30/25 17:59 Not Given
AC NATALIE
Protocol
Menthol/Methyl Salicylate 1 applic 08/02/25 02:35 08/03/25 07:50
Bengay-Like Cream TOPICAL 08/30/25 02:34 1 applic
TID NATALIE Administration
Nifedipine 30 mg 08/02/25 08:00 08/03/25 07:51
Nifedipine 30 Mg Extended Release Tablet PO 08/30/25 07:59 30 mg
DAILY NATALIE Administration
Pantoprazole Sodium 40 mg 08/02/25 08:00 08/03/25 07:51
Pantoprazole Sodium 40 Mg/10 Ml Vial IV 08/30/25 07:59 40 mg
BID NATALIE Administration
Sertraline HCl 50 mg 08/02/25 08:00 08/03/25 07:52
Sertraline 50 Mg Tablet PO 08/30/25 07:59 50 mg
DAILY NATALIE Administration
Sodium Chloride 0 flush 08/02/25 01:00
Sodium Chloride 0.9% (Flush) Syringe IV 08/30/25 00:59
PER PROTOCOL NATALIE
Sodium Chloride 10 ml 08/02/25 08:00 08/03/25 07:51
Sodium Chloride 0.9% (Preservative Free) 10 Ml Vial IV 08/30/25 07:59 10 ml
BID NATALIE Administration
Review of Systems
-
History Source: Patient and Family
Constitutional: Denies Fever, Fatigue or Chills
Respiratory: Denies Hemoptysis
GI: Reports Bloody Stools (1 episode 1-2 weeks ago); Denies Black Stools or Hemetemesis
Neuro: Reports Other (Dizziness, weakness, and lightheadedness last couple weeks, but not currently)
Physical Exam
-
General: No Apparent Distress
Cardiology: Other (Regular rate and rhythm)
Musculoskeletal: No Cyanosis, Edema, Left Lower Extrem and Other (LLE mildly TTP in upper calf)
Extremities: Pulses Present
Skin: Warm and Dry; Negative Jaundice
Psych: Calm
Labs
Lab Results
WBC 8.9 10^3/uL (4.8-10.8) 08/03/25 06:31
RBC 3.59 10^6/uL (4.20-5.40) L 08/03/25 06:31
Hgb 9.7 g/dL (12.0-16.0) L 08/03/25 06:
Hgb 9.8 g/dL (12.0-16.0) L 08/03/25 06:
Hct 30.7 % (37.0-47.0) L 08/03/25 06:
Hct 30.7 % (37.0-47.0) L 08/03/25 06:
MCV 85.5 fL (81.0-99.0) 08/03/25 06:31
MCH 27.0 pg (27.0-31.0) 08/03/25 06:31
MCHC 31.6 g/dL (33.0-37.0) L 08/03/25 06:31
RDW 15.0 % (11.5-14.5) H 08/03/25 06:31
Plt Count 227 10^3/uL (130-400) 08/03/25 06:31
MPV 11.1 fL (7.4-10.4) H 08/03/25 06:31
Abs Immat Gran (auto) 0.0 10^3/uL (0-0.05) 08/01/25 17:56
Absolute Neuts (auto) 4.5 10^3/uL (1.4-6.5) 08/01/25 17:56
Absolute Lymphs (auto) 2.3 10^3/uL (1.2-3.4) 08/01/25 17:56
Absolute Monos (auto) 0.8 10^3/uL (0.1-0.6) H 08/01/25 17:56
Absolute Eos (auto) 0.3 10^3/uL (0-0.7) 08/01/25 17:56
Absolute Basos (auto) 0.0 10^3/uL (0-0.2) 08/01/25 17:56
Immature Gran % 0.4 % (0-0.5) 08/01/25 17:56
Neutrophils % 57.2 % (42.2-75.2) 08/01/25 17:56
Lymphocytes % 29.0 % (20.5-51.1) 08/01/25 17:56
Monocytes % 9.6 % (1.7-9.3) H 08/01/25 17:56
Eosinophils % 3.3 % (0-6) 08/01/25 17:56
Basophils % 0.5 % (0-2) 08/01/25 17:56
Creatinine 2.0 mg/dL (0.6-1.0) H 08/03/25 06:31
Vital Signs
Vital Signs
Temp Pulse Resp BP Pulse Ox
97.8 F 59 18 130/82 93
08/03/25 07:49 08/03/25 07:51 08/03/25 07:49 08/03/25 07:51 08/03/25 10:06
[2025-08-03 11:36] VITALS: BP 130/60
[2025-08-03 11:41] LABS: D-Dimer 0.79 ug/mlFEU (0.00-0.50)
[2025-08-03 11:50] LABS: Glucose - Point of Care 220 mg/dl (70-99)
[2025-08-03] MEDS: NOVOLOG FLEXPEN-LOW RESISTANCE 2 UNITS SC (12:26)
[2025-08-03] MEDS: FERRLECIT 110 MG IV (12:51)
--- NOTE | 2025-08-03 12:52 | CON.CAR ---
Addendum entered and electronically signed by Jaron Chavarria MD 08/03/25 16:30:
I saw and examined the patient.
The Ems Instructor's note was reviewed and I agree with the note.
Comment: Briefly, 89-year-old woman last medical history of severe aortic stenosis, heart failure with preserved ejection fraction, CKD, recent DVT on Eliquis who is being treated for transfusion dependent anemia after initial hemoglobin was found
to be 4.9. Cardiology is consulted for elevated troponin.
Patient is not experiencing any chest discomfort
No ischemic changes on EKG
Overall troponin trend is relatively flat and peaked at 0.08. No need to trend further.
Suspect nonischemic myocardial injury troponin elevation in the setting of anemia, CKD and acute heart failure
Patient reports worsening lower extremity edema and proBNP is significantly elevated at 26,500
Blood transfusions have likely worsened her volume status
Plan to continue IV Lasix 40 mg IV twice daily we will attempt to obtain the report of her recent echo
Follow renal function, electrolytes and daily weights
Will attempt to obtain the report of her recent echo which was done within the last few weeks
Discussed with patient's daughter at bedside
Original Note:
Consultation
Consultation Request
Date/Time Consultation Requested: 08/03/2025
Date/Time Consultation Performed: 08/03/2025
Requesting Provider: Dr. Charles
Performing Provider: Dr. Chavarria
Reason for Consultation: Elevated troponin
Medical History
-
History of Present Illness:
Patient came to the hospital on Thursday with fatigue and was admitted with anemia and cardiology is now consulted for elevated troponin. Patient lives in independent living at [facility] and follows with a PCP there and also has appointments to
see Dr. Mcclure from [facility] at [facility]. Patient has known severe and saw Dr. Mcclure in the office last week and had an echo the week before that. Patient has been considered for TAVR, but workup has been prolonged due to CKD.
In the meantime patient was diagnosed with an LLE DVT in June and was started on Eliquis. In the ER on Thursday her Hgb was 4.9 and patient was admitted with heme positive stools. Patient is declining GI workup and has received 3 units PRBCs.
Patient is chronically on Lasix 40 mg PO daily for history of chronic HF and that was held on admission due to MUNA, but patient finally received a dose of Lasix 20 mg IV x 1 earlier today with increasing urine output. Patient denies any SOB.
Patient also had elevated troponin up to 0.08 and denies chest pain. Patient has history of CABG at an unknown date.
PMH:
Eliquis OAC for DVT
LLE DVT 06/2025
CKD 4
Chronic HF unknown EF
Severe
CAD s/p CABG unknown date
DM2
Past Medical History
Past Medical History: Other (In HPI)
Past Surgical History: Appendectomy, Cardiac (CABG), Gynecological, Orthopedic and Other (Right CEA)
Social History
Tobacco: Non-Smoker
Alcohol: None
Drug: None
Living: Alone (Patient lives in independent living at [facility], but has home health aides from 9 PM to 1 AM daily)
Family History
Family History: Diabetes
Allergies / Home Medications
Allergy/AdvReac Type Severity Reaction Status Date / Time
No Known Allergies Allergy Verified 08/01/25 17:52
�Medication �Instructions �Recorded �Confirmed �Type
aspirin 81 mg tablet,delayed 81 mg PO DAILY Blood Clot 02/17/24 08/01/25 History
release Prevention/Tx
omeprazole 40 mg capsule,delayed 40 mg PO DAILY Gastrointestinal 02/17/24 08/01/25 History
release Issue
sertraline 50 mg tablet 50 mg PO DAILY Depression 02/17/24 08/01/25 History
therapeutic multivitamin 1 tab PO DAILY Supplement 02/17/24 08/01/25 History
apixaban 5 mg tablet (Eliquis) 5 mg PO BID Blood Clot 06/28/25 08/01/25 History
Prevention/Tx
atorvastatin 20 mg tablet (Lipitor) 20 mg PO HS High Cholesterol 06/28/25 08/01/25 History
fluticasone propionate 50 1 spray intranasal DAILYPRN PRN 06/28/25 08/01/25 History
mcg/actuation nasal allergies
spray,suspension
furosemide 40 mg tablet (Lasix) 40 mg PO DAILY Fluid 06/28/25 08/01/25 History
Retention/Swelling
gabapentin 800 mg tablet 800 mg PO BID Neurological 06/28/25 08/01/25 History
Condition
hydrocodone 10 mg-acetaminophen 1 tab PO QID Pain 06/28/25 08/01/25 History
325 mg tablet
ibuprofen 200 mg tablet (Advil) 400 mg PO DAILYPRN PRN mild pain 06/28/25 08/01/25 History
losartan 100 mg tablet 100 mg PO DAILY Blood Pressure 06/28/25 08/01/25 History
nifedipine 30 mg tablet,extended 30 mg PO DAILY Blood Pressure 06/28/25 08/01/25 History
release
ferrous sulfate 325 mg (65 mg 325 mg PO DAILY Supplement 08/01/25 08/01/25 History
iron) tablet
Review of Systems
-
History Source: Patient and Family (Daughter at bedside helping with HPI)
All other systems: Negative unless noted
Physical Exam
Vital Signs
Temp Pulse Resp BP Pulse Ox
97.6 F 76 18 130/60 99
08/03/25 11:36 08/03/25 11:36 08/03/25 11:36 08/03/25 11:36 08/03/25 11:36
GEN: NAD. AAOx3
HEENT: EOMI, MMM
LUNGS: RA. CTA B/L, no wheeze
CV: SR on tele. Reg, S1/S2, 2/6 syst LSB
ABD: soft, BS+, NT, ND
EXT: +1 B/L LE edema
NEURO: Gross non-focal
SKIN: No rash
Lab Results
08/03/25 06:31
08/03/25 06:31
Troponin I 0.066 ng/ml H* 08/02/25 21:00
Eob-J-[id number] Pept 96384 pg/ml 08/03/25 08:47
Impression / Plan
-
PCP Dr. Da Silva
Cardiology: Dr. Mcclure at [facility] [phone]
Impression:
Admitted with severe symptomatic anemia 08/01/2025
Heme positive anemia
Eliquis OAC for DVT
LLE DVT 06/2025
MUNA on CKD 4
Elevated troponin
Acute on chronic HF unknown EF
Severe
CAD s/p CABG unknown date
DM2
Echo 07/2025: [facility] study, await report
Plan:
-Patient came to the hospital on Thursday with fatigue and was admitted with anemia and cardiology is now consulted for elevated troponin. Patient lives in independent living at [facility] and follows with a PCP there and also has appointments to
see Dr. Mcclure from [facility] at [facility]. Patient has known severe and saw Dr. Mcclure in the office last week and had an echo the week before that. Patient has been considered for TAVR, but workup has been prolonged due to CKD.
In the meantime patient was diagnosed with an LLE DVT in June and was started on Eliquis. In the ER on Thursday her Hgb was 4.9 and patient was admitted with heme positive stools. Patient is declining GI workup and has received 3 units PRBCs.
Patient is chronically on Lasix 40 mg PO daily for history of chronic HF and that was held on admission due to MUNA, but patient finally received a dose of Lasix 20 mg IV x 1 earlier today with increasing urine output. Patient denies any SOB.
Patient also had elevated troponin up to 0.08 and denies chest pain. Patient has history of CABG at an unknown date.
-ECG reviewed by me is SR with lateral ST changes that are stable from last EKG 06/28/2025
-Patient has heme positive anemia with Hgb as low as 4.9 on admission that was treated with 4 units PRBCs. Patient is declining GI evaluation and current plan is that if the LLE DVT is no longer seen on LE U/S then patient will stop Eliquis, but if
DVT persists then she is being considered for IVC filter. Reviewed with the patient and her daughter that IVC filter is a low risk procedure and that patient is considered high risk given acute HF and severe , but that patient can proceed with
IVC filter at an acceptable level of risk.
-Cardiology initially consulted for elevated troponin the peaked at 0.08 it was not associated with any chest pain. Suspect this is a nonischemic myocardial injury troponin elevation related to acute HF and anemia.
-Patient with acute HF and unknown EF in the setting of anemia, transfusion and severe . Patient had an echo about 2 weeks ago and I have called her primary beef grader to obtain this report.
-No additional transfusions planned at this time and patient was given Lasix 20 mg IV x 1 earlier today even though she normally takes Lasix 40 mg PO daily as an outpatient. Will give an additional dose of Lasix 20 mg IV this evening and reassess
the need for additional IV diuresis in the morning.
-Patient is not chronically on BB as an outpatient for unclear reasons
-Outpatient dose of losartan 100 mg daily is on hold due to MUNA on admission
-Patient is not chronically on SGLT2 inhibitor due to GFR 23
-Patient with severe and workup for TAVR has been prolonged due to underlying CKD 4. Await echo from 2 weeks ago. Patient will continue to follow with her primary beef grader for this as an outpatient.
[2025-08-03 15:42] VITALS: BP 125/60
[2025-08-03 16:47] LABS: Glucose - Point of Care 173 mg/dl (70-99)
[2025-08-03] MEDS: NOVOLOG FLEXPEN-LOW RESISTANCE 1 UNITS SC (16:48)
[2025-08-03] MEDS: BenGay-Like TOPICAL ×2 (16:49→21:41)
[2025-08-03 19:17] VITALS: BP 121/54
[2025-08-03 21:31] LABS: Glucose - Point of Care 127 mg/dl (70-99)
[2025-08-03 23:32] VITALS: BP 157/68
[2025-08-04] VITALS (7 sets, daily range): BP systolic 110–185; BP diastolic 50–91; BMI 32.7
[2025-08-04 06:35] LABS: Hematocrit 29.3 % (37.0-47.0); Hemoglobin 9.2 g/dL (12.0-16.0); Mean Corp Hgb Conc. 31.4 g/dL (33.0-37.0); Mean Corpuscular Volume 83.5 fL (81.0-99.0); Platelet Count 215 10^3/uL (130-400); Red Cell Dist. Width 15.4 % (11.5-14.5)
[2025-08-04 06:55] LABS: Glucose - Point of Care 108 mg/dl (70-99)
[2025-08-04 07:03] LABS: Blood Urea Nitrogen 36 mg/dl (7-17); Calcium 8.5 mg/dl (8.4-10.2); Carbon Dioxide 26 mmol/L (22-30); Chloride 106 mmol/L (98-107); Estimated Creatinine Clearance 17 ml/min; Glucose 101 mg/dl (70-99); Potassium 4.3 mmol/L (3.5-5.1); Sodium 138 mmol/L (135-145); eGFR 23.44
[2025-08-04] MEDS: NOVOLOG FLEXPEN-LOW RESISTANCE SC (07:06)
--- NOTE | 2025-08-04 08:02 | W.PN.HOSP.TC ---
Today's Communication/Plan
-
Continue IV Lasix
SCDs for DVT Prophylaxis
Assessment / Plan
Assessment / Plan
Physical Exam
General: Not in acute distress
HEENT: Normocephalic. Moist mucous membranes
Respiratory: Clear to Auscultation Bilaterally
Cardiac: S1/S2, Regular Rhythm
GI: Soft, Non Tender, Non Distended and Normal Bowel Sounds
Musculoskeletal: No Cyanosis and Other (1+ ankle edema b/l) -- edema in the B/L extremities has improved compared to yesterday
Neuro: AO x 3
Assessment/Plan
89 y/o female with past medical history significant for hypertension, CAD, aortic stenosis, CHF and CKD who presents to ED for evaluation of severe anemia and fatigue. Patient was diagnosed with LLE DVT on 06/07/25. She was started on Eliquis at
that time (10mg BID x 7 days then 5mg BID since). Patient states that she has felt very tired. She notes SOB with minimal activity. No chest pain. No cough, fevers / chills, etc.
Patient notes that she had a single episode of BRBPR about one week ago or so. She reports a large amount of blood in the toilet at that time. She has had BM since then with no evidence of blood. She is not certain whether her stools have been
darker in color. She denies any abdominal pain, N/V, diarrhea, etc. No other noted sources of bleeding including epistaxis, hemoptysis, etc.
Patient had outpatient labs done a few days ago and was called today and informed that her Hgb was very low and she should presented to the ED for evaluation.
In the ED her Hgb was 4.9 g/dL. She was seen in the ED about one month ago for chest pain / shortness of breath (unremarkable evaluation at that time) and Hgb was 10.2.
Severe Symptomatic Anemia
Bloody Stools about 1 week prior to presentation
Acute blood loss anemia
Heme Positive Stools
Eliquis Coagulopathy
- Continue to monitor closely on telemetry; low threshold for transfer to IMU
- Hold Eliquis and Aspirin 81 mg daily
- IV PPI BID.
- Patient received a total of 3 units of PRBCs so far this hospitalization -- initial Hgb 4.9, now improved to 9
- Follow H&H and provide additional blood products as needed.
- Maintain Hgb>8 given history of CAD
- GI consult for further evaluation and possible endoscopic examination.
- I communicated with air chipper Dr. Katlyn Guerrero, and she said that patient declined hemodialysis and also any EGD/colonoscopy. Patient is open to have LE Doppler to r/o DVT then stopping eliquis care home. If DVT is
present on lower extremity ultrasound, can get IVC filter (but there was no DVT on lower extremity ultrasound). Follow-up with change number operator for outpatient serial labs and products as needed
- Appreciate Hematology input given this challenging scenario
History of GERD
MUNA on CKD IV
- SCr = 2.2-->2.0 compared to recent baseline of 1.7 to 1.8.
- Likely pre-renal due to anemia / decreased perfusion.
- Follow for improvement with volume / blood replacement.
CAD
Non-Ischemic Myocardial Injury
History of CABG
- No chest pain. Exertional dyspnea likely due to anemia.
- Mild troponin elevation -- plateaued -- appreciate cardiology
- Per my communication on 08/04/25 with GI, it is okay to resume Aspirin 81 mg daily and monitor patient's Hgb
Aortic Stenosis
Acute on Chronic HFpEF -- likely in setting of blood transfusions
- ProBNP significantly elevated
- Continue IV Lasix 40 mg BID
- Follow I/Os, daily weights, etc.
- Cardiology consultation appreciated
- Echocardiogram ordered
Hypertension
Diet-Controlled DM-II
- Stable. Follow glucose and cover with SSI as needed.
- Update A1C was ordered on admission, although may not be reliable in the setting of GI bleed
Peripheral Neuropathy
- Stable. Continue gabapentin.
Lumbar radiculopathy with chronic pain and opiate dependence
- History of spine surgery
- Monitor for constipation given narcotic pain regimen
- Bowel regimen started -- patient takes bowel regimen at home
LLE DVT
DVT Prophylaxis
- Holding Eliquis given acute blood loss / bleeding as noted above.
- No DVT on lower extremity ultrasound. Will start SCDs.
- No Eliquis or any anticoagulation at this time based on shared-decision making with the patient
Code Status: DNR
Today, 07/25/25, I spoke to patient's son-in-law Jonathan (via patient's phone) and also the patient at the same time, and I answered all of their questions and concerns to satisfaction.
Anticipated Discharge: 24 - 48 hours
Subjective/Interval History
-
Date of Service: August 04, 2025
Patient was seen and examined. She denied any new complaints.
Objective Data
-
Labs:
Laboratory Results
08/04/25
06:04
WBC 9.2
Hgb 9.2 L
Hct 29.3 L
Plt Count 215
Sodium 138
Potassium 4.3
Chloride 106
Carbon Dioxide 26
BUN 36 H
Creatinine 2.0 H
Glucose 101 H
Calcium 8.5
Vital Signs:
Vital Signs
Temp Pulse Resp BP Pulse Ox
97.6 F 87 18 143/67 96
08/04/25 03:22 08/04/25 03:22 08/04/25 03:22 08/04/25 03:22 08/04/25 03:22
I&O
08/03/25 08/04/25 08/05/25
06:59 06:59 06:59
Intake Total 1210 / 1210 240 / 240
Balance 1210 / 1210 240 / 240
[2025-08-04] MEDS: BenGay-Like TOPICAL ×3 (08:12→21:07)
[2025-08-04] MEDS: LASIX 40 MG IV ×2 (08:12→16:21)
[2025-08-04] MEDS: NSS (PRESERVATIVE FREE) 10 ML IV (08:12)
[2025-08-04] MEDS: PROTONIX IV 40 MG IV (08:13)
[2025-08-04] MEDS: PROCARDIA XL (EXTENDED RELEASE) 30 MG PO (08:13)
[2025-08-04] MEDS: ZOLOFT 50 MG PO (08:13)
[2025-08-04] MEDS: NEURONTIN 800 MG PO ×2 (08:13→19:37)
[2025-08-04] MEDS: NORCO 5/325 2 TABLET PO ×4 (08:13→21:07)
--- NOTE | 2025-08-04 08:32 | W.PN.CARDCBS ---
Today's Communication / Plan
-
Overall improving and hemoglobin at 9.2.
Continue to diurese with IV Lasix 40 IV twice daily.
Creatinine overall stable at 2.0.
Repeat Doppler of the legs with no DVT. ?IVC filter versus reduction in dose of Eliquis.
Hematology following
Will repeat echo with severe aortic stenosis.
Impression / Plan
-
PCP Dr. Da Silva
Cardiology: Dr. Mcclure at [facility] [phone]
Impression:
Admitted with severe symptomatic anemia 08/01/2025
Heme positive anemia
Eliquis OAC for DVT
LLE DVT 06/2025
MUNA on CKD 4
Elevated troponin
Acute on chronic HF unknown EF
Severe
CAD s/p CABG unknown date
DM2
Echo 07/2025: [facility] study, await report
Plan:
-Patient came to the hospital on Thursday with fatigue and was admitted with anemia and cardiology is now consulted for elevated troponin. Patient lives in independent living at [facility] and follows with a PCP there and also has appointments to
see Dr. Mcclure from [facility] at [facility]. Patient has known severe and saw Dr. Mcclure in the office last week and had an echo the week before that. Patient has been considered for TAVR, but workup has been prolonged due to CKD.
In the meantime patient was diagnosed with an LLE DVT in June and was started on Eliquis. In the ER on Thursday her Hgb was 4.9 and patient was admitted with heme positive stools.
-Hemoglobin is improved to 9.2. Continue to follow. No plans for current GI evaluation.
-Repeat lower extremity Doppler revealed no further DVT. Hematology following to decide on IVC filter versus changing anticoagulation. Currently off Eliquis.
-Will repeat echo here to evaluate LVEF, RV, and aortic valve.
-Continue IV Lasix 40 IV twice daily and continue [place] [id number]. Weight is improving.
-Outpatient dose of losartan 100 mg daily is on hold due to MUNA on admission. Creatinine stable at 2.0
-Patient is not chronically on SGLT2 inhibitor due to GFR 23
-Patient with severe and workup for TAVR has been prolonged due to underlying CKD 4. Patient will continue to follow with her primary printer slotter helper for this as an outpatient.
Progress Note - Sharepoint Designer Developer
Subjective
Date of Service: August 04, 2025
breathing is improved. no chest pains
Objective
Labs:
08/04/25 06:04
08/04/25 06:04
Labs
Hgb 9.2 g/dL (12.0-16.0) L 08/04/25 06:04
Hct 29.3 % (37.0-47.0) L 08/04/25 06:04
Plt Count 215 10^3/uL (130-400) 08/04/25 06:04
APTT 33.9 Sec (23.4-35.0) 08/02/25 04:02
Sodium 138 mmol/L (135-145) 08/04/25 06:04
Potassium 4.3 mmol/L (3.5-5.1) 08/04/25 06:04
BUN 36 mg/dl (7-17) H 08/04/25 06:04
Creatinine 2.0 mg/dL (0.6-1.0) H 08/04/25 06:04
Glucose 101 mg/dl (70-99) H 08/04/25 06:04
Troponins
08/01/25 08/02/25 08/02/25
19:45 04:02 09:30
Troponin I 0.053 H* 0.080 H* Cancelled
08/02/25 08/02/25
14:36 21:00
Troponin I 0.072 H* 0.066 H*
Vital Signs and I&O:
Vital Signs
Temp Pulse Resp BP Pulse Ox
97.6 F 73 16 149/68 95
08/04/25 07:00 08/04/25 08:12 08/04/25 07:00 08/04/25 08:12 08/04/25 07:00
Vital Signs
Temp Pulse Resp BP Pulse Ox
97.6 F 73 16 149/68 95
08/04/25 07:00 08/04/25 08:12 08/04/25 07:00 08/04/25 08:12 08/04/25 07:00
Intake & Output
08/02/25 08/03/25 08/04/25 08/05/25
06:59 06:59 06:59 06:59
Intake Total 860 / 860 1210 / 1210 240 / 240
Balance 860 / 860 1210 / 1210 240 / 240
Physical Exam
Physical Exam
GEN: No distress, awake, Ox3
HEENT: supple, anicteric, mmm
LUNGS: CTA, no wheezes/rales
CV: Reg, S1/S2, 2/6 syst LSB, S3+
ABD: soft, BS+, NT/ND
EXT: ++ edema
NEURO: Gross non-focal
SKIN: No rash
[2025-08-04] MEDS: ASPIR LOW (ENTERIC COATED) 81 MG PO (10:09)
[2025-08-04] MEDS: THERAGRAN 1 TABLET PO (10:09)
[2025-08-04] MEDS: MIRALAX 17 GRAMS PO (10:40)
--- NOTE | 2025-08-04 10:54 | CM ---
Addendum entered by Maryjo Pelayo RN 08/04/25 14:40:
Pt request [facility] . Referral placed in care port.
PLAN Home with [facility] if accepted.
Original Note:
Hemoglobin improved after blood transfusion .
Continue on Lasix IV.
Requested PT eval when medically appropriate.
PLAN Will need PT OT for dc planning
--- NOTE | 2025-08-04 11:21 | W.PN.ONC2 ---
Documented by User: Duncan Edwards MD, Resident 08/04/25 14:40
Today's Communication / Plan
-
Continue holding anticoagulation
Continue IV iron
Prophylactic anticoagulation deferred going forward, per discussion with patient and family
No indication for IVC filter at this time
Impression
Impression
Patient is an 89-year-old female with PMH of LLE DVT on Eliquis and aortic stenosis who presented to [facility] with severe symptomatic anemia s/p 3U PRBCs, recent BRBPR, and swelling and tenderness of LLE. Heme-onc consulted for consideration of
anticoagulation and IVC filter placement in the setting of possible LLE DVT and active/recent GI bleed.
Clinical
- Anticoagulation on hold
- Patient denying GI interventions for source control of bleeding
- No current signs of active GI bleeding
Labs
- Hgb 9.2, stable from recent days and improved from 4.9 on presentation s/p 3U PRBCs
- Iron studies: Ferritin 8.2, iron 89, RDW 14.9-15.5. Suggestive of chronic iron deficiency.
- D-dimer: 0.79
Imaging
- Lower extremity ultrasound: No evidence of DVT in bilateral lower extremities
Plan
Plan
#Severe symptomatic SIN
#Possible LLE DVT
Continue to hold anticoagulation in setting of suspected SIN 2/2 GI bleed
Continue IV iron (bag 2/5 today)
No indication for IVC filter placement given ultrasound negative for LLE DVT
Defer restarting prophylactic anticoagulation at this time, per discussion with patient and family regarding risks and benefits with regard to clot prevention versus bleeding risk
Monitor CBC, clinical status
Transfuse Hgb <8 due to cardiac history
Subjective/Objective
Chief Complaint
Abnormal outpatient lab, weakness
Subjective
Patient is seen at the bedside on hospital day #4. No current complaints. Patient notes decreased swelling in her left lower extremity compared to yesterday. Discussed with patient lack of indication for IVC filter given ultrasound negative for
DVT yesterday. When discussing whether to restart any anticoagulation following LLE DVT diagnosed 06/07/2025, patient states she is hesitant to restart anticoagulation. Patient states she has prolonged periods of immobility at home, primarily due
to chronic pain. Denies trauma or dehydration around the time of her DVT in May. No family history of clotting problems. Denies lightheadedness, dizziness, shortness of breath, or any current signs of bleeding, including hematochezia, melena,
hematuria, hematemesis, or hemoptysis. Discussed with patient and her family the risks and benefits of prophylactic anticoagulation for recent LLE DVT in the setting of severe anemia secondary to suspected GI bleed will denying GI interventions.
Patient and her family choose to remain off anticoagulation at this time.
Vital Signs:
Vital Signs
Temp Pulse Resp BP Pulse Ox
97.4 F 72 12 129/51 95
08/04/25 11:09 08/04/25 11:09 08/04/25 11:09 08/04/25 11:09 08/04/25 11:09
Lab Results:
Laboratory Data
WBC 9.2 10^3/uL (4.8-10.8) 08/04/25 06:04
Hgb 9.2 g/dL (12.0-16.0) L 08/04/25 06:04
Plt Count 215 10^3/uL (130-400) 08/04/25 06:04
APTT 33.9 Sec (23.4-35.0) 08/02/25 04:02
eGFR 23.44 08/04/25 06:04
Physical Exam
HEENT: Other (No pallor); No Jaundice
Extremities: Pulses Present, Edema (LLE edema improved from yesterday) and Other (LLE non-TTP; extremities warm); No Phlebitic Signs
Neuro: Non Focal
Review of Systems
Review of Systems
Constitutional: Denies Fever or Fatigue
Respiratory: Denies Dyspnea or Other (Denies hemoptysis)
Cardiovascular: Denies Chest Pain
Gastrointestinal: Denies Other (Denies hematemesis, hematochezia, or melena)
Genitourinary: Denies Hematuria
Orders
Orders
Orders From Last 24 Hours
08/03/25 11:04
D-Dimer Routine

Documented by User: Cliff Randall MD 08/04/25 14:53
Today's Communication / Plan
-
Continue holding anticoagulation
Continue IV iron
Prophylactic anticoagulation deferred going forward, per discussion with patient and family
No indication for IVC filter at this time
Hematology Addendum:
Patient seen and evaluated and agree w/ resident note and plan
-h/o DVT - 06/02 - now admit w/ GI bleed - Hb drop to 4.9g/dl on anticoagulation
-anticoagulation has been held in context of GI bleed w/ improvement in hemoglobin s/p transfusion PRBCs
-f/u LE doppler US w/ no DVT
-discussed LE doppler findings w/ patient and her son in-law in detail
-discussed potential role for resuming prophylactic anticoagulation - lower dose eliquis - including potential benefits and risks
-after discussion - patient expressed an understanding of potential risks and benefits - electing not to resume anticoagulation at this time due to concerns regarding bleeding risk
Will continue to follow with you.
[2025-08-04 11:29] LABS: Glucose - Point of Care 174 mg/dl (70-99)
[2025-08-04] MEDS: NOVOLOG FLEXPEN-LOW RESISTANCE 1 UNITS SC ×2 (11:47→16:27)
[2025-08-04] MEDS: FERRLECIT 110 MG IV (12:55)
[2025-08-04 16:29] LABS: Glucose - Point of Care 159 mg/dl (70-99)
[2025-08-04] MEDS: PROTONIX 40 MG PO (19:37)
[2025-08-04] MEDS: SENOKOT-S 1 TABLET PO (19:37)
[2025-08-04] MEDS: LIPITOR 20 MG PO (21:07)
[2025-08-04 21:27] LABS: Glucose - Point of Care 160 mg/dl (70-99)
[2025-08-05 03:24] VITALS: BP 112/70
[2025-08-05 06:00] VITALS: BMI 31.9
[2025-08-05 07:17] VITALS: BP 130/59
[2025-08-05 08:12] LABS: Hematocrit 29.3 % (37.0-47.0); Hemoglobin 9.3 g/dL (12.0-16.0); Mean Corp Hgb Conc. 31.7 g/dL (33.0-37.0); Mean Corpuscular Volume 84.7 fL (81.0-99.0); Platelet Count 218 10^3/uL (130-400); Red Cell Dist. Width 15.9 % (11.5-14.5)
[2025-08-05 08:12] LABS: Glucose - Point of Care 109 mg/dl (70-99)
[2025-08-05] MEDS: NOVOLOG FLEXPEN-LOW RESISTANCE SC (08:17)
[2025-08-05 08:38] LABS: Blood Urea Nitrogen 35 mg/dl (7-17); Calcium 8.6 mg/dl (8.4-10.2); Carbon Dioxide 27 mmol/L (22-30); Chloride 104 mmol/L (98-107); Estimated Creatinine Clearance 18 ml/min; Glucose 98 mg/dl (70-99); Potassium 4.0 mmol/L (3.5-5.1); Sodium 140 mmol/L (135-145); eGFR 24.93
[2025-08-05] MEDS: NORCO 5/325 2 TABLET PO ×2 (08:43→12:21)
[2025-08-05] MEDS: LASIX 40 MG IV (08:43)
[2025-08-05] MEDS: BenGay-Like 1 APPLIC TOPICAL (08:44)
[2025-08-05] MEDS: MIRALAX 17 GRAMS PO (08:45)
[2025-08-05] MEDS: ZOLOFT 50 MG PO (08:45)
[2025-08-05] MEDS: ASPIR LOW (ENTERIC COATED) 81 MG PO (08:45)
[2025-08-05] MEDS: THERAGRAN 1 TABLET PO (08:45)
[2025-08-05] MEDS: PROCARDIA XL (EXTENDED RELEASE) 30 MG PO (08:45)
[2025-08-05] MEDS: NEURONTIN 800 MG PO (08:45)
[2025-08-05] MEDS: PROTONIX 40 MG PO (08:45)
[2025-08-05] MEDS: SENOKOT-S 1 TABLET PO (08:45)
--- NOTE | 2025-08-05 09:31 | W.PN.HOSP.TC ---
Today's Communication/Plan
-
Discharge today
Assessment / Plan
Assessment / Plan
Physical Exam
General: Not in acute distress
HEENT: Normocephalic. Moist mucous membranes
Respiratory: Clear to Auscultation Bilaterally
Cardiac: S1/S2, Regular Rhythm
GI: Soft, Non Tender, Non Distended and Normal Bowel Sounds
Musculoskeletal: No Cyanosis and Other (1+ ankle edema b/l) -- edema in the B/L extremities has improved compared to yesterday
Neuro: AO x 3
Assessment/Plan
89 y/o female with past medical history significant for hypertension, CAD, aortic stenosis, CHF and CKD who presents to ED for evaluation of severe anemia and fatigue. Patient was diagnosed with LLE DVT on 06/07/25. She was started on Eliquis at
that time (10mg BID x 7 days then 5mg BID since). Patient states that she has felt very tired. She notes SOB with minimal activity. No chest pain. No cough, fevers / chills, etc.
Patient notes that she had a single episode of BRBPR about one week ago or so. She reports a large amount of blood in the toilet at that time. She has had BM since then with no evidence of blood. She is not certain whether her stools have been
darker in color. She denies any abdominal pain, N/V, diarrhea, etc. No other noted sources of bleeding including epistaxis, hemoptysis, etc.
Patient had outpatient labs done a few days ago and was called today and informed that her Hgb was very low and she should presented to the ED for evaluation.
In the ED her Hgb was 4.9 g/dL. She was seen in the ED about one month ago for chest pain / shortness of breath (unremarkable evaluation at that time) and Hgb was 10.2.
Severe Symptomatic Anemia
Bloody Stools about 1 week prior to presentation
Acute blood loss anemia
Iron Deficiency Anemia
Heme Positive Stools
Eliquis Coagulopathy
- Stop Eliquis
- Recently resumed Aspirin 81 mg daily
- IV PPI BID --> Pantoprazole 40 mg BID
- Patient received a total of 3 units of PRBCs so far this hospitalization -- initial Hgb 4.9, now improved to 9
- Follow H&H and provide additional blood products as needed.
- I communicated with on-call generator repairer Dr. Adrian and he confirmed that no more IV iron needed this hospitalization after third dose of IV iron today
- Maintain Hgb>8 given history of CAD
- GI consult for further evaluation and possible endoscopic examination.
- I communicated with mannequin decorator Dr. Katlyn Guerrero, and she said that patient declined hemodialysis and also any EGD/colonoscopy. Patient is open to have LE Doppler to r/o DVT then stopping eliquis long-term. If DVT is
present on lower extremity ultrasound, can get IVC filter (but there was no DVT on lower extremity ultrasound). Follow-up with generator repairer for outpatient serial labs and products as needed
- Appreciate Hematology input given this challenging scenario
- Return to the ER if any symptoms
History of GERD
MUNA on CKD IV
- SCr = 2.2-->2.0-->1.9 compared to recent baseline of 1.7 to 1.8.
- Likely pre-renal due to anemia / decreased perfusion.
- Follow for improvement with volume / blood replacement.
- Recheck labs outpatient. Patient needs very close PCP follow-up.
CAD
Non-Ischemic Myocardial Injury
History of CABG
- No chest pain. Exertional dyspnea likely due to anemia.
- Mild troponin elevation -- plateaued -- appreciate cardiology
- Per my communication on 08/04/25 with GI, it is okay to resume Aspirin 81 mg daily and monitor patient's Hgb -- recently resumed Aspirin 81 mg daily
Aortic Stenosis
Acute on Chronic HFpEF -- likely in setting of blood transfusions
- ProBNP significantly elevated
- IV Lasix 40 mg BID --> Lasix 40 mg PO Daily (I communicated via [employer] with on-call beadworker Dr. Chavarria and he said he is okay with 40 mg daily PO Lasix on discharge for the patient)
- Follow I/Os, daily weights, etc.
- Cardiology consultation appreciated
- Echocardiogram with left ventricular ejection fraction 65 %, right ventricular size and systolic function normal, moderate to severe aortic stenosis with peak/mean gradients 60/37 mmHg, respectively. CA 0.6 cm2, mild to moderate tricuspid
regurgitation.
Estimated pulmonary artery pressure of 47 mmHg assuming a right atrial pressure of 3 mmHg.
Hypertension
Diet-Controlled Type 2 Diabetes Mellitus
- Stable. Follow glucose and cover with SSI as needed.
- Update A1C was ordered on admission, although may not be reliable in the setting of GI bleed
Peripheral Neuropathy
- Stable. Continue gabapentin.
Lumbar radiculopathy with chronic pain and opiate dependence
- History of spine surgery
- Monitor for constipation given narcotic pain regimen
- Bowel regimen started -- patient takes bowel regimen at home
LLE DVT
DVT Prophylaxis
- Holding Eliquis given acute blood loss / bleeding as noted above.
- No DVT on lower extremity ultrasound. Started SCDs.
- No Eliquis or any anticoagulation at this time based on shared-decision making with the patient
Code Status: DNR
On 08/04/25, I spoke to patient's son-in-law Jonathan (via patient's phone) and also the patient at the same time, and I answered all of their questions and concerns to satisfaction.
On 08/05/25, I spoke to patient's son-in-law Jonathan (via patient's phone) and also Jonathan's spouse, and I answered all of their questions and concerns to satisfaction.
More than 30 minutes spent in discharge including
Final examination of the patient
Summarizing hospital stay
Instructions for continuing care to all relevant caregivers
Preparation of discharge records, prescriptions, and referral forms
Total time spent (in minutes): 48
Anticipated Discharge: Today
Subjective/Interval History
-
Date of Service: August 05, 2025
Patient was seen and examined. She was doing better, still with some generalized weakness. She denied any chest pain or shortness of breath. Swelling in legs have improved.
Objective Data
-
Labs:
Laboratory Results
08/05/25
07:35
WBC 6.4
Hgb 9.3 L
Hct 29.3 L
Plt Count 218
Sodium 140
Potassium 4.0
Chloride 104
Carbon Dioxide 27
BUN 35 H
Creatinine 1.9 H
Glucose 98
Calcium 8.6
Vital Signs:
Vital Signs
Temp Pulse Resp BP Pulse Ox
97.7 F 77 18 130/59 95
08/05/25 07:17 08/05/25 08:43 08/05/25 07:17 08/05/25 08:43 08/05/25 07:17
I&O
08/04/25 08/05/25 08/06/25
06:59 06:59 06:59
Intake Total 240 / 240 720 / 720
Output Total 445 / 445
Balance 240 / 240 275 / 275
[2025-08-05] MEDS: FERRLECIT 110 MG IV (11:15)
[2025-08-05 11:19] VITALS: BP 118/51; PULSE 92
--- NOTE | 2025-08-05 11:20 | CM ---
Reviewed the chart notes and spoke with the patient at the bedside. IMM reviewed. CM continues to be available to patient/family and is monitoring medical plan for needs at discharge.
Plan: Discharge to home today. Patient's son-in-law and daughter will provide transportation. No needs. PT/OT recommending outpatient PT/OT.
[2025-08-05 11:23] VITALS: BP 118/51; PULSE 80
[2025-08-05 11:47] VITALS: BP 105/56
[2025-08-05 12:18] LABS: Glucose - Point of Care 182 mg/dl (70-99)
[2025-08-05] MEDS: NOVOLOG FLEXPEN-LOW RESISTANCE 1 UNITS SC (12:19)
--- NOTE | 2025-08-05 15:32 | W.PN.CARDCBS ---
Today's Communication / Plan
-
Transition IV Lasix to 40 mg p.o. daily
Stable for discharge from my perspective
Impression / Plan
-
PCP Dr. Da Silva
Cardiology: Dr. Mcclure at [facility] [phone]
Impression:
Admitted with severe symptomatic anemia 08/01/2025
Heme positive anemia
Eliquis OAC for DVT
LLE DVT 06/2025
MUNA on CKD 4
Elevated troponin
Acute on chronic HF unknown EF
Severe
CAD s/p CABG unknown date
DM2
Echo 07/2025: [facility] study, await report
Plan:
-Patient came to the hospital on Thursday with fatigue and was admitted with anemia and cardiology is now consulted for elevated troponin. Patient lives in independent living at [facility] and follows with a PCP there and also has appointments to
see Dr. Mcclure from [facility] at [facility]. Patient has known severe and saw Dr. Mcclure in the office last week and had an echo the week before that. Patient has been considered for TAVR, but workup has been prolonged due to CKD.
In the meantime patient was diagnosed with an LLE DVT in June and was started on Eliquis. In the ER on Thursday her Hgb was 4.9 and patient was admitted with heme positive stools.
-Following blood transfusion patient was found to [place] [address]
-Treated with IV Lasix and weight is down significantly
- Creatinine remained stable
- Will transition to oral Lasix 40 mg daily
Stable for discharge from my perspective with close outpatient follow-up with her primary business area manager Dr. Mcclure
Progress Note - Work Measurement Engineer
Subjective
Date of Service: August 05, 2025
No acute overnight events. No cardiac complaints today.
Objective
Labs:
08/05/25 07:35
08/05/25 07:35
Labs
Hgb 9.3 g/dL (12.0-16.0) L 08/05/25 07:35
Hct 29.3 % (37.0-47.0) L 08/05/25 07:35
Plt Count 218 10^3/uL (130-400) 08/05/25 07:35
APTT 33.9 Sec (23.4-35.0) 08/02/25 04:02
Sodium 140 mmol/L (135-145) 08/05/25 07:35
Potassium 4.0 mmol/L (3.5-5.1) 08/05/25 07:35
BUN 35 mg/dl (7-17) H 08/05/25 07:35
Creatinine 1.9 mg/dL (0.6-1.0) H 08/05/25 07:35
Glucose 98 mg/dl (70-99) 08/05/25 07:35
Troponins
08/02/25
21:00
Troponin I 0.066 H*
Vital Signs and I&O:
Vital Signs
Temp Pulse Resp BP Pulse Ox
97.8 F 76 18 105/56 95
08/05/25 11:47 08/05/25 11:47 08/05/25 11:47 08/05/25 11:47 08/05/25 12:29
Vital Signs
Temp Pulse Resp BP Pulse Ox
97.8 F 76 18 105/56 95
08/05/25 11:47 08/05/25 11:47 08/05/25 11:47 08/05/25 11:47 08/05/25 12:29
Intake & Output
08/03/25 08/04/25 08/05/25 08/06/25
06:59 06:59 06:59 06:59
Intake Total 1210 / 1210 240 / 240 720 / 720
Output Total 445 / 445
Balance 1210 / 1210 240 / 240 275 / 275
Physical Exam
Physical Exam
Gen: NAD, AA
HEENT: NC/AT, sclera anicteric
Neck: No JVD
CV: RRR, NL s1/s2, 3/6 LO
Lungs: CTAB
Abd: S/ND
Ext: Trace LE edema
Skin: Warm, dry
Neuro: Non-focal
== END 2025-08-05 15:29 | disposition home or self-care (01) | DRG 377 ==
LOC: 4 EAST ACU 22:39
PROVIDERS: Nurse Practitioner Gerontology; ADMITTING PHYSICIAN Hospitalist; ATTENDING PHYSICIAN Hospitalist; CONSULT PHYSICIAN Internal Medicine Cardiovascular Disease; CONSULT PHYSICIAN Internal Medicine Gastroenterology; CONSULT PHYSICIAN Internal Medicine Hematology & Oncology; EMERGENCY PHYSICIAN Emergency Medicine; FAMILY PHYSICIAN Internal Medicine Geriatric Medicine
PROC: 30233N1 Transfusion of Nonautologous Red Blood Cells into Peripheral Vein, Percutaneous Approach (ICD-10-PCS; 2025-08-01)
DX: K92.2 Gastrointestinal hemorrhage, unspecified (principal); I50.33 Acute on chronic diastolic (congestive) heart failure; D62 Acute posthemorrhagic anemia; N18.4 Chronic kidney disease, stage 4 (severe); I13.0 Hypertensive heart and chronic kidney disease with heart failure and stage 1 through stage 4 chronic kidney disease, or unspecified chronic kidney disease; F11.20 Opioid dependence, uncomplicated; I5A Non-ischemic myocardial injury (non-traumatic); D68.32 Hemorrhagic disorder due to extrinsic circulating anticoagulants; I82.402 Acute embolism and thrombosis of unspecified deep veins of left lower extremity; N17.9 Acute kidney failure, unspecified; E11.22 Type 2 diabetes mellitus with diabetic chronic kidney disease; E78.00 Pure hypercholesterolemia, unspecified; E11.40 Type 2 diabetes mellitus with diabetic neuropathy, unspecified; E11.649 Type 2 diabetes mellitus with hypoglycemia without coma; I35.0 Nonrheumatic aortic (valve) stenosis; I25.10 Atherosclerotic heart disease of native coronary artery without angina pectoris; D50.9 Iron deficiency anemia, unspecified; M19.90 Unspecified osteoarthritis, unspecified site; G89.4 Chronic pain syndrome; F32.A Depression, unspecified; M54.16 Radiculopathy, lumbar region; F41.9 Anxiety disorder, unspecified; K21.9 Gastro-esophageal reflux disease without esophagitis; Z60.2 Problems related to living alone; Z96.641 Presence of right artificial hip joint; Z66 Do not resuscitate; Z95.1 Presence of aortocoronary bypass graft; Z79.01 Long term (current) use of anticoagulants; Z79.82 Long term (current) use of aspirin; Z79.899 Other long term (current) drug therapy; Z98.1 Arthrodesis status; Z86.718 Personal history of other venous thrombosis and embolism
CPT/HCPCS: 36430; 71045; 71046; 80048; 80053; 82040; 82728; 82962; 83036; 83540; 83550; 83735; 83880; 84484; 85014; 85018; 85025; 85027; 85379; 85730; 86850; 86900; 86901; 86920; 93005; 93306; 93970; 97162; 97166; 99291; J2916; P9016